=== PATIENT | female | born 1960 | race Caucasian/White ===

== ENCOUNTER 2020-09-26 18:51 | Inpatient (IN) | payer MEDICAID, SELFPAY ==
[~2020-09-26] VITALS: Ht 165.1 cm; Wt 112.0 kg
[2020-09-26] MEDS ORDERED: LORAZEPAM 2MG/ML CPJ IM ONE (19:15)
[2020-09-26 20:25] LABS: HEMATOCRIT. 45.7 % (36.0-48.0); HEMOGLOBIN. 15.5 g/dL (12.0-16.0); MEAN CORPUSCULAR HEMOGLOBIN 30.2 pg (28.0-32.0); MEAN CORPUSCULAR VOLUME 89.1 fL (81.0-99.0); MEAN PLATELET VOLUME 9.8 fl (7.4-10.4); PLATELET 172 x1000/uL (130-400); RED BLOOD CELL COUNT 5.12 mill/uL (4.2-5.4); RED CELL DISTRIBUTION WIDTH 14.1 % (11.6-14.6)
[2020-09-26 20:33] LABS: CHLORIDE 103 mEq/L (98-107)
[2020-09-26 20:57] LABS: PLATELET ESTIMATE NORMAL
[2020-09-26] MEDS ORDERED: DEXAMETHASONE 4MG/ML 1ML VIAL IV ONE (23:00)
[2020-09-26] MEDS ORDERED: CEFTRIAXONE 1 G PREMIX 50 ML IV ONE (23:00)
[2020-09-26] MEDS ORDERED: AZITHROMYCIN 500 MG in DEXT 5% WATER 250 ML IV SCH (23:00)
[2020-09-27 00:20] LABS: CLARITY URINE CLOUDY (CLEAR); COLOR URINE YELLOW (YELLOW); KETONES URINE TRACE (NEGATIVE); LEUKOCYTE ESTERASE URINE NEGATIVE (NEGATIVE); NITRITE URINE NEGATIVE (NEGATIVE); OCCULT BLOOD URINE 2+ (NEGATIVE); PROTEIN URINE 2+ (NEGATIVE); UROBILINOGEN URINE 0.2 E.U./dL (0.2-1.0)
[2020-09-27 00:41] LABS: *AMPHETAMINES SCREEN URINE NEGATIVE (NEGATIVE); *BARBITURATES SCREEN URINE NEGATIVE (NEGATIVE); *BENZODIAZEPINES SCREEN URINE NEGATIVE (NEGATIVE)
[2020-09-27 00:42] LABS: *COCAINE SCREEN URINE NEGATIVE (NEGATIVE); METHADONE URINE SCREEN NEGATIVE (NEGATIVE)
[2020-09-27 00:43] LABS: CANNABINOID URINE SCREEN NEGATIVE (NEGATIVE); OPIATES URINE SCREEN NEGATIVE (NEGATIVE); PHENCYCLIDINE URINE SCREEN NEGATIVE (NEGATIVE)
[2020-09-27 04:56] VITALS: BP 142/84
[2020-09-27 05:01] VITALS: BP 142/84
[2020-09-27] MEDS ORDERED: AMLO10TA80 MT (05:08)
[2020-09-27] MEDS ORDERED: LOSA100T32 MT (05:08)
[2020-09-27] MEDS ORDERED: ALBU6.7H11 INH (05:08)
[2020-09-27] MEDS ORDERED: ATOR-2 MT (05:08)
[2020-09-27] MEDS ORDERED: LORA10TA7 MT (05:08)
[2020-09-27] MEDS ORDERED: ISOS60TA4 MT (05:08)
[2020-09-27] MEDS ORDERED: CLOP75TA4 MT (05:08)
[2020-09-27] MEDS ORDERED: METO25TA6 MT (05:08)
[2020-09-27] MEDS ORDERED: ASPI-1497 MT (05:08)
[2020-09-27] MEDS ORDERED: ALBUTEROL 6.7GM HFA INHALER ORI PRN ×2 (06:30→13:30)
[2020-09-27] MEDS ORDERED: ONDANSETRON HCL 4MG/2ML INJ IV PRN (06:30)
[2020-09-27] MEDS ORDERED: DOCUSATE SODIUM 100MG CAPSULE PO PRN (06:30)
[2020-09-27] MEDS: DEXAMETHASONE 10 MG/ML VIAL IV SCH ×2 (06:54→13:18)
[2020-09-27] MEDS: GUAIFENESIN 200MG/10ML SUGAR FREE UDC PO PRN ×2 (06:54→20:23)
[2020-09-27 08:00] VITALS: BP 141/80
[2020-09-27] MEDS: ENOXAPARIN 30MG/0.3ML SYR SUBCUT SCH ×2 (08:34→20:23)
[2020-09-27] MEDS ORDERED: NA PHOS,M-B/NA PHOS,DI-BA ENEMA 118ML PR PRN (09:00)
[2020-09-27 11:39] VITALS: BP 153/77
[2020-09-27 12:44] LABS: HEMATOCRIT. 45.5 % (36.0-48.0); HEMOGLOBIN. 15.2 g/dL (12.0-16.0); MEAN CORPUSCULAR VOLUME 89.7 fL (81.0-99.0); MEAN PLATELET VOLUME 9.5 fl (7.4-10.4); PLATELET 184 x1000/uL (130-400); RED BLOOD CELL COUNT 5.07 mill/uL (4.2-5.4); RED CELL DISTRIBUTION WIDTH 14.2 % (11.6-14.6)
[2020-09-27 12:46] LABS: CHLORIDE 105 mEq/L (98-107)
[2020-09-27] MEDS ORDERED: MEDICATION NOT ON FORMULARY EA (Atorvastatin Calcium 1 TAB) MT SCH (13:30)
[2020-09-27] MEDS: METOPROLOL TARTRATE 25MG TABLET PO SCH ×2 (14:12→20:24)
[2020-09-27] MEDS: ASPIRIN 81MG EC TABLET PO SCH (14:12)
[2020-09-27] MEDS: CLOPIDOGREL 75MG TABLET PO SCH (14:12)
[2020-09-27] MEDS: LOSARTAN POTASSIUM 100 MG TABLET PO SCH (14:13)
[2020-09-27 14:14] LABS: PLATELET ESTIMATE NORMAL
[2020-09-27 16:00] VITALS: BP 145/96
[2020-09-27] MEDS: ISOSORBIDE MONONITRATE 60MG TABLET SR 24HR PO SCH (16:30)
[2020-09-27] MEDS: LORATADINE 10MG TABLET PO SCH (16:30)
[2020-09-27 20:00] VITALS: BP_SYST 152; BP_SYST 157; BP_DIAS 90; BP_DIAS 91; BP_DIAS 95
[2020-09-27] MEDS: ATORVASTATIN CALCIUM 40MG TABLET PO SCH (20:45)
[2020-09-27] MEDS: ACETAMINOPHEN 325MG TABLET PO PRN (20:48)
[2020-09-27 21:07] LABS: D-DIMER 0.2 mg/L FEU (<0.50); PROTHROMBIN TIME 10.7 sec (9.6-11.0)
[2020-09-27] MEDS: CEFTRIAXONE 1,000 MG in DEXTROSE 5% WATER 50 ML IV SCH (22:29)
[2020-09-27] MEDS: AZITHROMYCIN 500 MG in DEXT 5% WATER 250 ML IV SCH (23:21)
[2020-09-28] VITALS: BP 142/90
[2020-09-28 05:32] VITALS: BP 144/86
[2020-09-28 07:38] LABS: BASOPHILS % 0.2 % (0.0-2.0); EOSINOPHILS % 0.1 % (0.0-5.0); HEMATOCRIT. 49.4 % (36.0-48.0); HEMOGLOBIN. 16.3 g/dL (12.0-16.0); LYMPHOCYTES % 8.6 % (20.0-50.0); MEAN PLATELET VOLUME 9.9 fl (7.4-10.4); MONOCYTES % 4.3 % (2.0-8.0); NEUTROPHILS % 86.8 % (40.0-76.0); PLATELET 181 x1000/uL (130-400); RED BLOOD CELL COUNT 5.43 mill/uL (4.2-5.4); RED CELL DISTRIBUTION WIDTH 14.4 % (11.6-14.6)
[2020-09-28 08:05] LABS: CHLORIDE 105 mEq/L (98-107)
[2020-09-28 08:15] LABS: LDL CHOLESTEROL 84 mg/dL (5-100)
[2020-09-28 08:16] LABS: HDL CHOLESTEROL 48 mg/dL (40-59)
[2020-09-28] MEDS: DEXAMETHASONE 10 MG/ML VIAL IV SCH (09:39)
[2020-09-28] MEDS: LORATADINE 10MG TABLET PO SCH (10:01)
[2020-09-28] MEDS: CLOPIDOGREL 75MG TABLET PO SCH (10:01)
[2020-09-28] MEDS: METOPROLOL TARTRATE 25MG TABLET PO SCH ×2 (10:01→20:55)
[2020-09-28] MEDS: LOSARTAN POTASSIUM 100 MG TABLET PO SCH (10:01)
[2020-09-28] MEDS: ASPIRIN 81MG EC TABLET PO SCH (10:01)
[2020-09-28] MEDS: GUAIFENESIN 200MG/10ML SUGAR FREE UDC PO PRN (10:02)
[2020-09-28] MEDS: ISOSORBIDE MONONITRATE 60MG TABLET SR 24HR PO SCH (10:02)
[2020-09-28] MEDS: ENOXAPARIN 30MG/0.3ML SYR SUBCUT SCH (10:02)
[2020-09-28 12:00] VITALS: BP 127/78
[2020-09-28 16:00] VITALS: BP 129/78
[2020-09-28 20:00] VITALS: BP_SYST 113; BP_SYST 131; BP_DIAS 71; BP_DIAS 89
[2020-09-28] MEDS: FAMOTIDINE 20MG TABLET PO SCH (20:54)
[2020-09-28] MEDS: ATORVASTATIN CALCIUM 40MG TABLET PO SCH (20:54)
[2020-09-28] MEDS ORDERED: SIMETHICONE 80MG TABLET CHEW PO PRN (22:00)
[2020-09-28] MEDS: CEFTRIAXONE 1,000 MG in DEXTROSE 5% WATER 50 ML IV SCH (22:49)
[2020-09-28] MEDS: AZITHROMYCIN 500 MG in DEXT 5% WATER 250 ML IV SCH (23:06)
[2020-09-28] MEDS: GUAIFENESIN-DM 200MG-20MG/10ML UDC PO PRN (23:06)
[2020-09-29] VITALS (8 sets, daily range): BP systolic 124–147; BP diastolic 77–92
[2020-09-29] MEDS: ACETAMINOPHEN 325MG TABLET PO PRN (05:08)
[2020-09-29] MEDS: GUAIFENESIN-DM 200MG-20MG/10ML UDC PO PRN (05:08)
[2020-09-29] MEDS ORDERED: TRYPAN BLUE 0.5 ML DISP.SYRIN IO ONE (09:22)
[2020-09-29] MEDS: ENOXAPARIN 40MG/0.4ML SYR SUBCUT SCH (09:51)
[2020-09-29] MEDS: DEXAMETHASONE 10 MG/ML VIAL IV SCH (09:51)
[2020-09-29] MEDS: METOPROLOL TARTRATE 25MG TABLET PO SCH ×2 (09:52→20:07)
[2020-09-29] MEDS: ASPIRIN 81MG EC TABLET PO SCH (09:52)
[2020-09-29] MEDS: LOSARTAN POTASSIUM 100 MG TABLET PO SCH (09:52)
[2020-09-29] MEDS: LORATADINE 10MG TABLET PO SCH (09:52)
[2020-09-29] MEDS: ISOSORBIDE MONONITRATE 60MG TABLET SR 24HR PO SCH (09:52)
[2020-09-29] MEDS: CLOPIDOGREL 75MG TABLET PO SCH (09:52)
[2020-09-29] MEDS: FAMOTIDINE 20MG TABLET PO SCH (20:06)
[2020-09-29] MEDS: ATORVASTATIN CALCIUM 40MG TABLET PO SCH (20:07)
[2020-09-29] MEDS ORDERED: TRAZODONE HCL 50MG TABLET PO SCH (23:00)
[2020-09-29] MEDS: CEFTRIAXONE 1,000 MG in DEXTROSE 5% WATER 50 ML IV SCH (23:34)
[2020-09-30] VITALS (7 sets, daily range): BP systolic 134–168; BP diastolic 88–106
[2020-09-30] MEDS: AZITHROMYCIN 500 MG in DEXT 5% WATER 250 ML IV SCH (00:11)
[2020-09-30] MEDS: METOPROLOL TARTRATE 25MG TABLET PO SCH ×2 (08:19→21:50)
[2020-09-30] MEDS: LOSARTAN POTASSIUM 100 MG TABLET PO SCH (08:21)
[2020-09-30] MEDS: ISOSORBIDE MONONITRATE 60MG TABLET SR 24HR PO SCH (08:21)
[2020-09-30] MEDS: LORATADINE 10MG TABLET PO SCH (08:21)
[2020-09-30] MEDS: ASPIRIN 81MG EC TABLET PO SCH (08:21)
[2020-09-30] MEDS: DEXAMETHASONE 10 MG/ML VIAL IV SCH (08:21)
[2020-09-30] MEDS: ENOXAPARIN 40MG/0.4ML SYR SUBCUT SCH (08:21)
[2020-09-30] MEDS: CLOPIDOGREL 75MG TABLET PO SCH (08:21)
[2020-09-30] MEDS: CLONIDINE 0.1MG TABLET PO PRN (17:50)
[2020-09-30] MEDS: GUAIFENESIN-DM 200MG-20MG/10ML UDC PO PRN (17:50)
[2020-09-30] MEDS: FAMOTIDINE 20MG TABLET PO SCH (22:02)
[2020-09-30] MEDS: ATORVASTATIN CALCIUM 40MG TABLET PO SCH (22:02)
[2020-10-01 00:16] VITALS: BP 171/98
[2020-10-01] MEDS: CEFTRIAXONE 1,000 MG in DEXTROSE 5% WATER 50 ML IV SCH ×2 (00:30→22:30)
[2020-10-01] MEDS: AZITHROMYCIN 500 MG in DEXT 5% WATER 250 ML IV SCH (01:11)
[2020-10-01] MEDS: CLONIDINE 0.1MG TABLET PO PRN (01:30)
[2020-10-01] MEDS: DIPHENHYDRAMINE 50MG/ML VIAL IV PRN (01:30)
[2020-10-01] MEDS: GUAIFENESIN-DM 200MG-20MG/10ML UDC PO PRN ×2 (02:24→10:27)
[2020-10-01 08:00] VITALS: BP 158/89
[2020-10-01] MEDS: METOPROLOL TARTRATE 25MG TABLET PO SCH ×3 (09:00→20:31)
[2020-10-01] MEDS: ASPIRIN 81MG EC TABLET PO SCH (09:31)
[2020-10-01] MEDS: ISOSORBIDE MONONITRATE 60MG TABLET SR 24HR PO SCH (09:44)
[2020-10-01] MEDS: DEXAMETHASONE 10 MG/ML VIAL IV SCH (09:44)
[2020-10-01] MEDS: LORATADINE 10MG TABLET PO SCH (09:45)
[2020-10-01] MEDS: CLOPIDOGREL 75MG TABLET PO SCH (09:45)
[2020-10-01] MEDS: LOSARTAN POTASSIUM 100 MG TABLET PO SCH (09:46)
[2020-10-01] MEDS: ACETAMINOPHEN 325MG TABLET PO PRN ×2 (10:27→18:25)
[2020-10-01] MEDS: ENOXAPARIN 40MG/0.4ML SYR SUBCUT SCH (10:27)
[2020-10-01 12:00] VITALS: BP 147/81
[2020-10-01 15:36] VITALS: BP 139/81
[2020-10-01 20:00] VITALS: BP 143/81
[2020-10-01] MEDS: ATORVASTATIN CALCIUM 40MG TABLET PO SCH (20:31)
[2020-10-01] MEDS: FAMOTIDINE 20MG TABLET PO SCH (20:31)
[2020-10-02] VITALS: BP 151/88
[2020-10-02] MEDS: ACETAMINOPHEN 325MG TABLET PO PRN (02:09)
[2020-10-02 04:00] VITALS: BP 154/75
[2020-10-02 08:00] VITALS: BP 167/95
[2020-10-02] MEDS: ENOXAPARIN 40MG/0.4ML SYR SUBCUT SCH (08:35)
[2020-10-02] MEDS: GUAIFENESIN-DM 200MG-20MG/10ML UDC PO PRN (08:35)
[2020-10-02] MEDS: METOPROLOL TARTRATE 25MG TABLET PO SCH ×2 (08:36→21:00)
[2020-10-02] MEDS: CLOPIDOGREL 75MG TABLET PO SCH (08:36)
[2020-10-02] MEDS: LOSARTAN POTASSIUM 100 MG TABLET PO SCH (08:36)
[2020-10-02] MEDS: ISOSORBIDE MONONITRATE 60MG TABLET SR 24HR PO SCH (08:36)
[2020-10-02] MEDS: ASPIRIN 81MG EC TABLET PO SCH (08:37)
[2020-10-02] MEDS: LORATADINE 10MG TABLET PO SCH (08:37)
[2020-10-02] MEDS: DEXAMETHASONE 10 MG/ML VIAL IV SCH (08:37)
[2020-10-02] MEDS: DIPHENHYDRAMINE 50MG/ML VIAL IV PRN ×2 (08:37→23:09)
[2020-10-02 12:00] VITALS: BP 135/76
[2020-10-02 16:00] VITALS: BP 163/83
[2020-10-02] MEDS: CLONIDINE 0.1MG TABLET PO PRN (16:36)
[2020-10-02 20:00] VITALS: BP 141/83
[2020-10-02] MEDS: FAMOTIDINE 20MG TABLET PO SCH (20:59)
[2020-10-02] MEDS: ATORVASTATIN CALCIUM 40MG TABLET PO SCH (20:59)
[2020-10-02] MEDS: CEFTRIAXONE 1,000 MG in DEXTROSE 5% WATER 50 ML IV SCH (22:38)
[2020-10-03] VITALS (18 sets, daily range): BP systolic 133–167; BP diastolic 78–102
[2020-10-03] MEDS: ACETAMINOPHEN 325MG TABLET PO PRN (04:12)
[2020-10-03] MEDS: GUAIFENESIN-DM 200MG-20MG/10ML UDC PO PRN (08:22)
[2020-10-03] MEDS: DEXAMETHASONE 10 MG/ML VIAL IV SCH (08:23)
[2020-10-03] MEDS: DIPHENHYDRAMINE 50MG/ML VIAL IV PRN (08:23)
[2020-10-03] MEDS: ASPIRIN 81MG EC TABLET PO SCH (08:23)
[2020-10-03] MEDS: LOSARTAN POTASSIUM 100 MG TABLET PO SCH (08:24)
[2020-10-03] MEDS: ENOXAPARIN 40MG/0.4ML SYR SUBCUT SCH (08:24)
[2020-10-03] MEDS: METOPROLOL TARTRATE 25MG TABLET PO SCH (08:24)
[2020-10-03] MEDS: ISOSORBIDE MONONITRATE 60MG TABLET SR 24HR PO SCH (08:24)
[2020-10-03] MEDS: LORATADINE 10MG TABLET PO SCH (08:24)
[2020-10-03] MEDS: CLOPIDOGREL 75MG TABLET PO SCH (08:24)
[2020-10-03] MEDS ORDERED: LORAZEPAM 2MG/ML CPJ IV PRN (11:45)
[2020-10-03] MEDS: CLONIDINE 0.1MG TABLET PO PRN (11:49)
[2020-10-03 11:58] LABS: BG BASE EXCESS -0.2 mmol/L (-2.0-2.0); BG CARBOXYHEMOGLOBIN 0.8 % (0.5-1.5); BG DEOXYHEMOGLOBIN 12.8 % (0.0-5.0); BG METHEMOGLOBIN 0.1 % (0.0-1.5); BG OXYGEN SATURATION 87.1 % (92.0-98.5); BG OXYHEMOGLOBIN 86.3 % (94.0-97.0); BG PCO2 33.8 mmHg (35.0-45.0); BG PH 7.451 (7.350-7.450); BG PO2 49.4 mmHg (75.0-100.0); BG SAMPLE SITE RIGHT RADIAL; BG TOTAL HEMOGLOBIN 15.3 g/dL (12.0-18.0); BG VENT MODE MASK - NRB
[2020-10-03] MEDS ORDERED: FUROSEMIDE 40MG/4ML VIAL IVP NR (12:00)
[2020-10-03 17:27] LABS: HEMATOCRIT 45.9 % (36.0-48.0); HEMOGLOBIN 15.6 g/dL (12.0-16.0); MEAN CORPUSCULAR HEMOGLOBIN 29.8 pg (28.0-32.0); MEAN CORPUSCULAR VOLUME 87.7 fL (81.0-99.0); PLATELET 301 x1000/uL (130-400); RED BLOOD CELL COUNT 5.23 mill/uL (4.2-5.4); RED CELL DISTRIBUTION WIDTH 13.6 % (11.6-14.6)
[2020-10-03 17:41] LABS: CHLORIDE 105 mEq/L (98-107)
[2020-10-03 17:47] LABS: D-DIMER 0.37 mg/L FEU (<0.50); INR 1.1; PARTIAL THROMBOPLASTIN TIME 24.6 sec (23.4-31.0); PROTHROMBIN TIME 11.1 sec (9.6-11.0)
[2020-10-03] MEDS ORDERED: TRAZODONE HCL 50MG TABLET PO PRN (21:00)
[2020-10-03] MEDS ORDERED: TRAZODONE HCL 50MG TABLET PO SCH (21:00)
[2020-10-03] MEDS: FAMOTIDINE 20MG TABLET PO SCH (21:16)
[2020-10-03] MEDS: ATORVASTATIN CALCIUM 40MG TABLET PO SCH (21:16)
[2020-10-03] MEDS: ENOXAPARIN 100MG/ML SYR SUBCUT SCH (21:17)
[2020-10-03] MEDS: HYDRALAZINE 20MG/ML VIAL IV PRN (22:02)
[2020-10-04] VITALS (83 sets, daily range): BP systolic 104–190; BP diastolic 55–104
[2020-10-04] MEDS: HYDRALAZINE 20MG/ML VIAL IV PRN ×2 (05:04→20:43)
[2020-10-04 05:51] LABS: CHLORIDE 107 mEq/L (98-107)
[2020-10-04 06:05] LABS: HEMATOCRIT. 47.8 % (36.0-48.0); HEMOGLOBIN. 15.9 g/dL (12.0-16.0); MEAN CORPUSCULAR HEMOGLOBIN 29.5 pg (28.0-32.0); MEAN CORPUSCULAR VOLUME 88.7 fL (81.0-99.0); MEAN PLATELET VOLUME 9.8 fl (7.4-10.4); PLATELET 316 x1000/uL (130-400); RED BLOOD CELL COUNT 5.39 mill/uL (4.2-5.4); RED CELL DISTRIBUTION WIDTH 13.9 % (11.6-14.6)
[2020-10-04] MEDS: ASPIRIN 81MG EC TABLET PO SCH (09:20)
[2020-10-04] MEDS: LOSARTAN POTASSIUM 100 MG TABLET PO SCH (09:21)
[2020-10-04] MEDS: LORATADINE 10MG TABLET PO SCH (09:21)
[2020-10-04] MEDS: ISOSORBIDE MONONITRATE 60MG TABLET SR 24HR PO SCH (09:21)
[2020-10-04] MEDS: CLOPIDOGREL 75MG TABLET PO SCH (09:21)
[2020-10-04] MEDS: ENOXAPARIN 100MG/ML SYR SUBCUT SCH ×2 (09:22→20:43)
[2020-10-04] MEDS: DEXAMETHASONE 10 MG/ML VIAL IV SCH (09:25)
[2020-10-04] MEDS: DEXT 5%/0.9% NACL 1,000 ML IV SCH ×2 (09:27→23:10)
[2020-10-04 09:59] LABS: BG BASE EXCESS 1.9 mmol/L (-2.0-2.0); BG CARBOXYHEMOGLOBIN 0.5 % (0.5-1.5); BG DEOXYHEMOGLOBIN 1.4 % (0.0-5.0); BG FRACTION INSPIRED OXYGEN 100; BG HCO3 ACT 25.9 mmol/L (22.0-26.0); BG METHEMOGLOBIN 0.3 % (0.0-1.5); BG OXYGEN SATURATION 98.6 % (92.0-98.5); BG OXYHEMOGLOBIN 97.8 % (94.0-97.0); BG PCO2 38.9 mmHg (35.0-45.0); BG PH 7.442 (7.350-7.450); BG PO2 136.6 mmHg (75.0-100.0); BG SAMPLE SITE LEFT RADIAL; BG TOTAL HEMOGLOBIN 16.7 g/dL (12.0-18.0); BG TOTAL RESPIRATORY RATE 25 b/min
[2020-10-04 10:56] LABS: BG VENT MODE MASK-BIPAP
[2020-10-04 11:40] LABS: PLATELET ESTIMATE NORMAL
[2020-10-04] MEDS: ATORVASTATIN CALCIUM 40MG TABLET PO SCH (20:39)
[2020-10-04] MEDS: FAMOTIDINE 20MG TABLET PO SCH (20:40)
[2020-10-04] MEDS ORDERED: TRAZODONE HCL 50MG TABLET PO PRN (21:00)
[2020-10-05] VITALS (48 sets, daily range): BP systolic 121–179; BP diastolic 66–94
[2020-10-05 05:46] LABS: HEMATOCRIT. 46.2 % (36.0-48.0); HEMOGLOBIN. 15.4 g/dL (12.0-16.0); MEAN CORPUSCULAR HEMOGLOBIN 29.7 pg (28.0-32.0); MEAN CORPUSCULAR VOLUME 89.3 fL (81.0-99.0); MEAN PLATELET VOLUME 9.4 fl (7.4-10.4); PLATELET 304 x1000/uL (130-400); RED BLOOD CELL COUNT 5.17 mill/uL (4.2-5.4); RED CELL DISTRIBUTION WIDTH 14.1 % (11.6-14.6)
[2020-10-05 06:02] LABS: CHLORIDE 112 mEq/L (98-107)
[2020-10-05] MEDS: HYDRALAZINE 20MG/ML VIAL IV PRN (09:05)
[2020-10-05] MEDS: LOSARTAN POTASSIUM 100 MG TABLET PO SCH (09:06)
[2020-10-05] MEDS: CLOPIDOGREL 75MG TABLET PO SCH (09:06)
[2020-10-05] MEDS: ASPIRIN 81MG EC TABLET PO SCH (09:06)
[2020-10-05] MEDS: DEXAMETHASONE 10 MG/ML VIAL IV SCH (09:06)
[2020-10-05] MEDS: ISOSORBIDE MONONITRATE 60MG TABLET SR 24HR PO SCH (09:06)
[2020-10-05] MEDS: LORATADINE 10MG TABLET PO SCH (09:06)
[2020-10-05] MEDS: ENOXAPARIN 100MG/ML SYR SUBCUT SCH ×2 (09:07→22:29)
[2020-10-05 09:48] LABS: BG BASE EXCESS 0.6 mmol/L (-2.0-2.0); BG CARBOXYHEMOGLOBIN 0.7 % (0.5-1.5); BG DEOXYHEMOGLOBIN 4.2 % (0.0-5.0); BG FRACTION INSPIRED OXYGEN 100; BG HCO3 ACT 25.1 mmol/L (22.0-26.0); BG METHEMOGLOBIN 0.2 % (0.0-1.5); BG OXYGEN SATURATION 95.8 % (92.0-98.5); BG OXYHEMOGLOBIN 94.9 % (94.0-97.0); BG PH 7.416 (7.350-7.450); BG PO2 87.7 mmHg (75.0-100.0); BG SAMPLE SITE RIGHT RADIAL; BG TOTAL HEMOGLOBIN 16.8 g/dL (12.0-18.0); BG VENT MODE MASK - BIPAP
[2020-10-05 10:25] LABS: PLATELET ESTIMATE NORMAL
[2020-10-05] MEDS: ALBUTEROL 6.7GM HFA INHALER ORI SCH ×2 (14:31→20:05)
[2020-10-05] MEDS: DEXT 5%/0.9% NACL 1,000 ML IV SCH (17:56)
[2020-10-05] MEDS: ATORVASTATIN CALCIUM 40MG TABLET PO SCH (21:00)
[2020-10-05] MEDS: FAMOTIDINE 20MG TABLET PO SCH (21:00)
[2020-10-06] VITALS (78 sets, daily range): BP systolic 82–152; BP diastolic 39–86
[2020-10-06] MEDS: PROPOFOL 10MG/ML 100ML 100 ML IV PRN ×6 (01:15→18:14)
[2020-10-06 03:03] LABS: BG BASE EXCESS -5.2 mmol/L (-2.0-2.0); BG CARBOXYHEMOGLOBIN 0.7 % (0.5-1.5); BG DEOXYHEMOGLOBIN 2.1 % (0.0-5.0); BG FRACTION INSPIRED OXYGEN 100; BG HCO3 ACT 20.8 mmol/L (22.0-26.0); BG METHEMOGLOBIN 0.6 % (0.0-1.5); BG OXYGEN SATURATION 97.9 % (92.0-98.5); BG OXYHEMOGLOBIN 96.6 % (94.0-97.0); BG PCO2 42.4 mmHg (35.0-45.0); BG PH 7.309 (7.350-7.450); BG PO2 128.1 mmHg (75.0-100.0); BG SAMPLE SITE RIGHT BRACHIAL; BG TOTAL HEMOGLOBIN 14.3 g/dL (12.0-18.0); BG VENT MODE VENT - AC
[2020-10-06] MEDS: FENTANYL CITRATE/PF 2,500 MCG in SODIUM CHLORIDE 0.9% 200 ML IV PRN (04:00)
[2020-10-06 07:12] LABS: BG BASE EXCESS -0.1 mmol/L (-2.0-2.0); BG CARBOXYHEMOGLOBIN 0.7 % (0.5-1.5); BG DEOXYHEMOGLOBIN 2.8 % (0.0-5.0); BG FRACTION INSPIRED OXYGEN 100; BG HCO3 ACT 25.7 mmol/L (22.0-26.0); BG METHEMOGLOBIN 0.1 % (0.0-1.5); BG OXYGEN SATURATION 97.2 % (92.0-98.5); BG OXYHEMOGLOBIN 96.4 % (94.0-97.0); BG PCO2 46.3 mmHg (35.0-45.0); BG PH 7.362 (7.350-7.450); BG PO2 96.5 mmHg (75.0-100.0); BG SAMPLE SITE RIGHT BRACHIAL; BG TOTAL HEMOGLOBIN 13.4 g/dL (12.0-18.0); BG VENT MODE VENT - AC
[2020-10-06] MEDS: LOSARTAN POTASSIUM 100 MG TABLET PO SCH (09:00)
[2020-10-06] MEDS: ISOSORBIDE MONONITRATE 60MG TABLET SR 24HR PO SCH (09:00)
[2020-10-06] MEDS: DEXAMETHASONE 10 MG/ML VIAL IV SCH (09:15)
[2020-10-06] MEDS: ENOXAPARIN 100MG/ML SYR SUBCUT SCH ×2 (09:17→22:29)
[2020-10-06] MEDS: DEXT 5%/0.9% NACL 1,000 ML IV SCH (09:18)
[2020-10-06] MEDS: CLOPIDOGREL 75MG TABLET PO SCH (09:46)
[2020-10-06] MEDS: LORATADINE 10MG TABLET PO SCH (09:46)
[2020-10-06] MEDS: ASPIRIN 81MG EC TABLET PO SCH (09:47)
[2020-10-06] MEDS ORDERED: PROPOFOL 10MG/ML 100ML 100 ML IV PRN (12:00)
[2020-10-06] MEDS ORDERED: LIDOCAINE HCL/EPINEPHRINE 1%-EPI 1:100,000 20 ML VIAL ONE (12:36)
[2020-10-06] MEDS ORDERED: SODIUM BICARBONATE 4% (2.4MEQ) 5ML VIAL IV ONE (12:37)
[2020-10-06] MEDS ORDERED: LIDOCAINE HCL/PF 1% 10 MG/ML 5ML VIAL ONE (12:38)
[2020-10-06] MEDS ORDERED: LIDOCAINE HCL 1% 20ML VIAL (Pyxis) INJ ONE (12:38)
[2020-10-06] MEDS: PHENYLEPHRINE 100 MG in DEXT 5% WATER 240 ML IV PRN (18:11)
[2020-10-06] MEDS ORDERED: ATROPINE SULFATE 1MG/10ML SYR IV NR (18:30)
[2020-10-06] MEDS: ALBUTEROL 6.7GM HFA INHALER ORI SCH (20:19)
[2020-10-06 20:31] LABS: HEMATOCRIT. 40.7 % (36.0-48.0); HEMOGLOBIN. 13.2 g/dL (12.0-16.0); MEAN CORPUSCULAR HEMOGLOBIN 29.5 pg (28.0-32.0); MEAN CORPUSCULAR VOLUME 90.8 fL (81.0-99.0); MEAN PLATELET VOLUME 9.6 fl (7.4-10.4); PLATELET 279 x1000/uL (130-400); RED BLOOD CELL COUNT 4.48 mill/uL (4.2-5.4); RED CELL DISTRIBUTION WIDTH 14.2 % (11.6-14.6)
[2020-10-06 20:45] LABS: PHOSPHORUS 4.7 mg/dL (2.5-4.9)
[2020-10-06] MEDS: FAMOTIDINE 20MG TABLET PO SCH (21:12)
[2020-10-06] MEDS: ATORVASTATIN CALCIUM 40MG TABLET PO SCH (21:12)
[2020-10-06 21:29] LABS: PLATELET ESTIMATE NORMAL
[2020-10-06] MEDS ORDERED: DOPAMINE 800MG PREMIX (DOUBLE) 250 ML IV PRN (22:15)
[2020-10-07] VITALS (46 sets, daily range): BP systolic 90–139; BP diastolic 54–75
[2020-10-07] MEDS: ALBUTEROL 6.7GM HFA INHALER ORI SCH ×4 (00:07→21:09)
[2020-10-07] MEDS: MIDAZOLAM HCL 100 MG in DEXT 5% WATER 80 ML IV PRN ×2 (00:24→13:55)
[2020-10-07] MEDS: FENTANYL CITRATE/PF 2,500 MCG in SODIUM CHLORIDE 0.9% 200 ML IV PRN ×2 (01:49→23:07)
[2020-10-07] MEDS: ACETAMINOPHEN 650MG/20.3ML UDC PO PRN (01:52)
[2020-10-07 08:47] LABS: BG BASE EXCESS -4.8 mmol/L (-2.0-2.0); BG DEOXYHEMOGLOBIN 3.3 % (0.0-5.0); BG FRACTION INSPIRED OXYGEN 90; BG METHEMOGLOBIN 0.9 % (0.0-1.5); BG OXYGEN SATURATION 96.7 % (92.0-98.5); BG OXYHEMOGLOBIN 95.8 % (94.0-97.0); BG PCO2 41.3 mmHg (35.0-45.0); BG PH 7.324 (7.350-7.450); BG SAMPLE SITE LEFT RADIAL; BG TOTAL HEMOGLOBIN 13.8 g/dL (12.0-18.0); BG TOTAL RESPIRATORY RATE 24 b/min; BG VENT MODE VENT - AC
[2020-10-07] MEDS: LOSARTAN POTASSIUM 100 MG TABLET PO SCH ×2 (09:00→10:16)
[2020-10-07] MEDS: LORATADINE 10MG TABLET PO SCH (10:16)
[2020-10-07] MEDS: DEXAMETHASONE 10 MG/ML VIAL IV SCH (10:17)
[2020-10-07] MEDS: CLOPIDOGREL 75MG TABLET PO SCH (10:17)
[2020-10-07] MEDS: ENOXAPARIN 100MG/ML SYR SUBCUT SCH ×2 (10:21→22:14)
[2020-10-07] MEDS: ISOSORBIDE MONONITRATE 20MG TABLET NG SCH ×2 (10:45→16:00)
[2020-10-07] MEDS: ASPIRIN 81MG TABLET NG SCH (11:21)
[2020-10-07] MEDS: DEXT 5%/0.9% NACL 1,000 ML IV SCH ×2 (13:58→18:27)
[2020-10-07 18:32] LABS: CREATINE KINASE MB FRACTION 6.2 ng/mL (0.5-3.6)
[2020-10-07 20:51] LABS: T4 FREE 0.89 ng/dL (0.76-1.46)
[2020-10-07] MEDS: ATORVASTATIN CALCIUM 40MG TABLET PO SCH (22:14)
[2020-10-07] MEDS: FAMOTIDINE 20MG TABLET PO SCH (22:14)
[2020-10-07] MEDS: CEFEPIME 1,000 MG in DEXTROSE 5% WATER 50 ML IV SCH (22:29)
[2020-10-07 23:54] LABS: CREATINE KINASE MB FRACTION 8.7 ng/mL (0.5-3.6)
[2020-10-08] VITALS (67 sets, daily range): BP systolic 99–157; BP diastolic 44–81
[2020-10-08] MEDS: ALBUTEROL 6.7GM HFA INHALER ORI SCH ×3 (02:09→14:07)
[2020-10-08 06:24] LABS: CREATINE KINASE MB FRACTION 11.7 ng/mL (0.5-3.6)
[2020-10-08] MEDS: LOSARTAN POTASSIUM 100 MG TABLET PO SCH ×2 (09:00→09:11)
[2020-10-08] MEDS: ISOSORBIDE MONONITRATE 20MG TABLET NG SCH ×2 (09:00→17:35)
[2020-10-08] MEDS: DEXAMETHASONE 10 MG/ML VIAL IV SCH (09:11)
[2020-10-08] MEDS: LORATADINE 10MG TABLET PO SCH (09:11)
[2020-10-08] MEDS: ASPIRIN 81MG TABLET NG SCH (09:11)
[2020-10-08] MEDS: CLOPIDOGREL 75MG TABLET PO SCH (09:12)
[2020-10-08] MEDS: ENOXAPARIN 100MG/ML SYR SUBCUT SCH ×2 (09:14→20:26)
[2020-10-08] MEDS: CEFEPIME 1,000 MG in DEXTROSE 5% WATER 50 ML IV SCH (09:38)
[2020-10-08 09:40] LABS: BG BASE EXCESS -3.8 mmol/L (-2.0-2.0); BG CARBOXYHEMOGLOBIN 0.5 % (0.5-1.5); BG DEOXYHEMOGLOBIN 2.8 % (0.0-5.0); BG FRACTION INSPIRED OXYGEN 100; BG HCO3 ACT 22.4 mmol/L (22.0-26.0); BG METHEMOGLOBIN 0.3 % (0.0-1.5); BG OXYGEN SATURATION 97.2 % (92.0-98.5); BG OXYHEMOGLOBIN 96.4 % (94.0-97.0); BG PH 7.315 (7.350-7.450); BG PO2 95.4 mmHg (75.0-100.0); BG SAMPLE SITE LEFT RADIAL; BG TOTAL HEMOGLOBIN 13.2 g/dL (12.0-18.0); BG TOTAL RESPIRATORY RATE 29 b/min; BG VENT MODE VENT - AC
[2020-10-08] MEDS: MIDAZOLAM HCL 100 MG in DEXT 5% WATER 80 ML IV PRN ×2 (09:44→20:32)
[2020-10-08] MEDS: DEXT 5%/0.9% NACL 1,000 ML IV SCH (12:41)
[2020-10-08] MEDS: FENTANYL CITRATE/PF 2,500 MCG in SODIUM CHLORIDE 0.9% 200 ML IV PRN ×2 (13:57→22:33)
[2020-10-08] MEDS: FAMOTIDINE 20MG TABLET PO SCH (20:26)
[2020-10-08] MEDS: ATORVASTATIN CALCIUM 40MG TABLET PO SCH (20:26)
[2020-10-08] MEDS ORDERED: IPRATROPIUM/ALBUTEROL 0.5-3(2.5)MG/3ML NEB HHN PRN (20:30)
[2020-10-09] VITALS (107 sets, daily range): BP systolic 83–142; BP diastolic 42–95
[2020-10-09] MEDS: IPRATROPIUM/ALBUTEROL 0.5-3(2.5)MG/3ML NEB HHN SCH ×6 (01:10→21:04)
[2020-10-09] MEDS: DEXT 5%/0.9% NACL 1,000 ML IV SCH (01:38)
[2020-10-09] MEDS: MIDAZOLAM HCL 100 MG in DEXT 5% WATER 80 ML IV PRN ×3 (04:27→23:09)
[2020-10-09] MEDS ORDERED: AMIODARONE HCL 150 MG in DEXT 5% WATER 100 ML IV SCH (05:00)
[2020-10-09] MEDS ORDERED: AMIODARONE HCL 900 MG in DEXT 5% WATER 482 ML IV PRN (05:00)
[2020-10-09 05:17] LABS: HEMATOCRIT. 36.4 % (36.0-48.0); HEMOGLOBIN. 11.7 g/dL (12.0-16.0); MEAN CORPUSCULAR HEMOGLOBIN 29.8 pg (28.0-32.0); MEAN CORPUSCULAR VOLUME 92.7 fL (81.0-99.0); MEAN PLATELET VOLUME 10.3 fl (7.4-10.4); PLATELET 185 x1000/uL (130-400); RED BLOOD CELL COUNT 3.92 mill/uL (4.2-5.4); RED CELL DISTRIBUTION WIDTH 14.7 % (11.6-14.6)
[2020-10-09 05:39] LABS: CHLORIDE 125 mEq/L (98-107)
[2020-10-09 05:43] LABS: PHOSPHORUS 2.8 mg/dL (2.5-4.9)
[2020-10-09] MEDS ORDERED: PROPOFOL 10MG/ML 100ML 100 ML IV PRN (06:30)
[2020-10-09] MEDS ORDERED: DIGOXIN 500MCG/2ML AMP IV NR (07:15)
[2020-10-09] MEDS ORDERED: DIGOXIN 500MCG/2ML AMP ONE (07:15)
[2020-10-09] MEDS: FENTANYL CITRATE/PF 2,500 MCG in SODIUM CHLORIDE 0.9% 200 ML IV PRN ×3 (07:17→23:08)
[2020-10-09] MEDS ORDERED: AMIODARONE HCL 150 MG in DEXT 5% WATER 100 ML IV NR (07:30)
[2020-10-09 07:54] LABS: PLATELET ESTIMATE NORMAL
[2020-10-09] MEDS: ISOSORBIDE MONONITRATE 20MG TABLET NG SCH ×2 (09:00→16:32)
[2020-10-09] MEDS: ENOXAPARIN 100MG/ML SYR SUBCUT SCH ×2 (09:00→21:00)
[2020-10-09] MEDS: LOSARTAN POTASSIUM 100 MG TABLET PO SCH (09:00)
[2020-10-09] MEDS: CLOPIDOGREL 75MG TABLET PO SCH (09:00)
[2020-10-09] MEDS: DEXAMETHASONE 10 MG/ML VIAL IV SCH (09:02)
[2020-10-09] MEDS: LORATADINE 10MG TABLET PO SCH (09:02)
[2020-10-09] MEDS: CEFEPIME 1,000 MG in DEXTROSE 5% WATER 50 ML IV SCH (09:04)
[2020-10-09] MEDS: DEXTROSE 5% WATER 1,000 ML IV SCH (09:18)
[2020-10-09 09:33] LABS: BG BASE EXCESS -4.5 mmol/L (-2.0-2.0); BG CARBOXYHEMOGLOBIN 0.4 % (0.5-1.5); BG DEOXYHEMOGLOBIN 2.9 % (0.0-5.0); BG FRACTION INSPIRED OXYGEN 100; BG HCO3 ACT 23.1 mmol/L (22.0-26.0); BG METHEMOGLOBIN 0.3 % (0.0-1.5); BG OXYGEN SATURATION 97.1 % (92.0-98.5); BG OXYHEMOGLOBIN 96.4 % (94.0-97.0); BG PCO2 53.3 mmHg (35.0-45.0); BG PH 7.255 (7.350-7.450); BG PO2 101.3 mmHg (75.0-100.0); BG SAMPLE SITE LEFT RADIAL; BG TOTAL HEMOGLOBIN 12.7 g/dL (12.0-18.0); BG TOTAL RESPIRATORY RATE 33 b/min; BG VENT MODE VENT - AC
[2020-10-09 09:49] LABS: INR 1.2; PROTHROMBIN TIME 12.4 sec (9.6-11.0)
[2020-10-09] MEDS ORDERED: ATROPINE SULFATE 0.1MG/ML 10ML DISP.SYRIN IV NR (10:30)
[2020-10-09] MEDS: ASPIRIN 81MG TABLET NG SCH (15:00)
[2020-10-09] MEDS: ATORVASTATIN CALCIUM 40MG TABLET PO SCH (21:24)
[2020-10-09] MEDS: FAMOTIDINE 20MG TABLET PO SCH (21:24)
[2020-10-10] VITALS (91 sets, daily range): BP systolic 90–171; BP diastolic 46–104
[2020-10-10] MEDS: IPRATROPIUM/ALBUTEROL 0.5-3(2.5)MG/3ML NEB HHN SCH ×6 (00:46→21:17)
[2020-10-10] MEDS: CLOPIDOGREL 75MG TABLET PO SCH (09:00)
[2020-10-10 09:04] LABS: BG BASE EXCESS -2.4 mmol/L (-2.0-2.0); BG CARBOXYHEMOGLOBIN 0.3 % (0.5-1.5); BG DEOXYHEMOGLOBIN 2.5 % (0.0-5.0); BG FRACTION INSPIRED OXYGEN 100; BG HCO3 ACT 24.4 mmol/L (22.0-26.0); BG METHEMOGLOBIN 0.1 % (0.0-1.5); BG OXYGEN SATURATION 97.5 % (92.0-98.5); BG OXYHEMOGLOBIN 97.1 % (94.0-97.0); BG PCO2 50.9 mmHg (35.0-45.0); BG PH 7.299 (7.350-7.450); BG PO2 115.2 mmHg (75.0-100.0); BG SAMPLE SITE LEFT RADIAL; BG TOTAL HEMOGLOBIN 12.1 g/dL (12.0-18.0); BG TOTAL RESPIRATORY RATE 34 b/min; BG VENT MODE VENT - AC
[2020-10-10] MEDS: ASPIRIN 81MG TABLET NG SCH (09:20)
[2020-10-10] MEDS: CEFEPIME 1,000 MG in DEXTROSE 5% WATER 50 ML IV SCH (09:20)
[2020-10-10] MEDS: DEXTROSE 5% WATER 1,000 ML IV SCH (09:21)
[2020-10-10] MEDS: LORATADINE 10MG TABLET PO SCH (09:21)
[2020-10-10] MEDS: LOSARTAN POTASSIUM 100 MG TABLET PO SCH (09:21)
[2020-10-10] MEDS: ISOSORBIDE MONONITRATE 20MG TABLET NG SCH (09:21)
[2020-10-10] MEDS: DEXAMETHASONE 10 MG/ML VIAL IV SCH (09:21)
[2020-10-10] MEDS: FENTANYL CITRATE/PF 2,500 MCG in SODIUM CHLORIDE 0.9% 200 ML IV PRN ×2 (09:33→17:16)
[2020-10-10] MEDS: PROPOFOL 10MG/ML 100ML 100 ML IV PRN ×3 (12:11→23:57)
[2020-10-10] MEDS: MIDAZOLAM HCL 100 MG in DEXT 5% WATER 80 ML IV PRN ×2 (12:16→23:02)
[2020-10-10] MEDS: FAMOTIDINE 20MG TABLET PO SCH (22:03)
[2020-10-11] VITALS (69 sets, daily range): BP systolic 105–224; BP diastolic 57–135
[2020-10-11] MEDS: IPRATROPIUM/ALBUTEROL 0.5-3(2.5)MG/3ML NEB HHN SCH ×6 (00:27→21:27)
[2020-10-11] MEDS: FENTANYL CITRATE/PF 2,500 MCG in SODIUM CHLORIDE 0.9% 200 ML IV PRN ×3 (00:52→21:21)
[2020-10-11 05:15] LABS: HEMATOCRIT. 33.9 % (36.0-48.0); HEMOGLOBIN. 11.1 g/dL (12.0-16.0); MEAN CORPUSCULAR HEMOGLOBIN 29.9 pg (28.0-32.0); MEAN CORPUSCULAR VOLUME 91.1 fL (81.0-99.0); MEAN PLATELET VOLUME 10.4 fl (7.4-10.4); PLATELET 150 x1000/uL (130-400); RED BLOOD CELL COUNT 3.72 mill/uL (4.2-5.4); RED CELL DISTRIBUTION WIDTH 14.1 % (11.6-14.6)
[2020-10-11 05:32] LABS: CHLORIDE 116 mEq/L (98-107)
[2020-10-11 08:26] LABS: BG BASE EXCESS -3.6 mmol/L (-2.0-2.0); BG CARBOXYHEMOGLOBIN 0.3 % (0.5-1.5); BG DEOXYHEMOGLOBIN 1.6 % (0.0-5.0); BG FRACTION INSPIRED OXYGEN 100; BG HCO3 ACT 22.6 mmol/L (22.0-26.0); BG METHEMOGLOBIN 0.1 % (0.0-1.5); BG OXYGEN SATURATION 98.4 % (92.0-98.5); BG PCO2 45.8 mmHg (35.0-45.0); BG PH 7.312 (7.350-7.450); BG PO2 158.1 mmHg (75.0-100.0); BG SAMPLE SITE LEFT RADIAL; BG TOTAL HEMOGLOBIN 12.2 g/dL (12.0-18.0); BG VENT MODE VENT - AC
[2020-10-11] MEDS: CLOPIDOGREL 75MG TABLET PO SCH (09:00)
[2020-10-11] MEDS: DEXAMETHASONE 10 MG/ML VIAL IV SCH (09:17)
[2020-10-11] MEDS: LOSARTAN POTASSIUM 100 MG TABLET PO SCH (09:17)
[2020-10-11] MEDS: LORATADINE 10MG TABLET PO SCH (09:17)
[2020-10-11] MEDS: CEFEPIME 1,000 MG in DEXTROSE 5% WATER 50 ML IV SCH (09:17)
[2020-10-11] MEDS: ASPIRIN 81MG TABLET NG SCH (09:17)
[2020-10-11] MEDS: DEXTROSE 5% WATER 1,000 ML IV SCH (09:18)
[2020-10-11 10:38] LABS: PLATELET ESTIMATE NORMAL
[2020-10-11] MEDS: MIDAZOLAM HCL 100 MG in DEXT 5% WATER 80 ML IV PRN ×2 (10:52→21:21)
[2020-10-11] MEDS: PANTOPRAZOLE SODIUM 40 MG/VIAL IV SCH (17:43)
[2020-10-12] VITALS (87 sets, daily range): BP systolic 112–188; BP diastolic 64–112
[2020-10-12] MEDS: IPRATROPIUM/ALBUTEROL 0.5-3(2.5)MG/3ML NEB HHN SCH ×5 (00:57→17:00)
[2020-10-12 04:25] LABS: HEMATOCRIT. 32.8 % (36.0-48.0); HEMOGLOBIN. 10.8 g/dL (12.0-16.0); MEAN CORPUSCULAR HEMOGLOBIN 29.8 pg (28.0-32.0); MEAN CORPUSCULAR VOLUME 90.9 fL (81.0-99.0); MEAN PLATELET VOLUME 10.6 fl (7.4-10.4); PLATELET 153 x1000/uL (130-400); RED BLOOD CELL COUNT 3.61 mill/uL (4.2-5.4); RED CELL DISTRIBUTION WIDTH 13.6 % (11.6-14.6)
[2020-10-12 04:34] LABS: CHLORIDE 111 mEq/L (98-107)
[2020-10-12 04:41] LABS: PHOSPHORUS 2.5 mg/dL (2.5-4.9)
[2020-10-12] MEDS: FENTANYL CITRATE/PF 2,500 MCG in SODIUM CHLORIDE 0.9% 200 ML IV PRN ×2 (06:37→17:27)
[2020-10-12] MEDS: MIDAZOLAM HCL 100 MG in DEXT 5% WATER 80 ML IV PRN ×2 (06:44→22:41)
[2020-10-12] MEDS: ASPIRIN 81MG TABLET NG SCH (09:00)
[2020-10-12] MEDS: CLOPIDOGREL 75MG TABLET PO SCH (09:00)
[2020-10-12] MEDS: LORATADINE 10MG TABLET PO SCH (09:00)
[2020-10-12] MEDS: DEXAMETHASONE 10 MG/ML VIAL IV SCH (09:39)
[2020-10-12] MEDS: CEFEPIME 1,000 MG in DEXTROSE 5% WATER 50 ML IV SCH ×2 (09:39→20:49)
[2020-10-12] MEDS: PANTOPRAZOLE SODIUM 40 MG/VIAL IV SCH (09:39)
[2020-10-12] MEDS: DEXTROSE 5% WATER 1,000 ML IV SCH (09:40)
[2020-10-12] MEDS: LOSARTAN POTASSIUM 100 MG TABLET PO SCH (09:40)
[2020-10-12 11:09] LABS: BG BASE EXCESS 0.2 mmol/L (-2.0-2.0); BG CARBOXYHEMOGLOBIN 0.2 % (0.5-1.5); BG DEOXYHEMOGLOBIN 4.5 % (0.0-5.0); BG FRACTION INSPIRED OXYGEN 85; BG HCO3 ACT 27.1 mmol/L (22.0-26.0); BG METHEMOGLOBIN 0.1 % (0.0-1.5); BG OXYGEN SATURATION 95.5 % (92.0-98.5); BG OXYHEMOGLOBIN 95.2 % (94.0-97.0); BG PCO2 53.9 mmHg (35.0-45.0); BG PH 7.319 (7.350-7.450); BG SAMPLE SITE LEFT RADIAL; BG TOTAL HEMOGLOBIN 11.9 g/dL (12.0-18.0); BG TOTAL RESPIRATORY RATE 26 b/min; BG VENT MODE VENT - AC
[2020-10-12 12:21] LABS: PLATELET ESTIMATE NORMAL
[2020-10-12] MEDS ORDERED: BISACODYL 10MG SUPP PR ONE (21:30)
[2020-10-12] MEDS: METOCLOPRAMIDE HCL 10MG/2ML VIAL IV SCH (22:02)
[2020-10-13] VITALS (71 sets, daily range): BP systolic 117–219; BP diastolic 62–108
[2020-10-13] MEDS: IPRATROPIUM/ALBUTEROL 0.5-3(2.5)MG/3ML NEB HHN SCH ×6 (00:47→20:59)
[2020-10-13] MEDS: FENTANYL CITRATE/PF 2,500 MCG in SODIUM CHLORIDE 0.9% 200 ML IV PRN ×3 (03:34→21:13)
[2020-10-13] MEDS: DEXTROSE 5% WATER 1,000 ML IV SCH ×2 (06:20→08:10)
[2020-10-13] MEDS: METOCLOPRAMIDE HCL 10MG/2ML VIAL IV SCH ×4 (06:20→23:33)
[2020-10-13] MEDS: MIDAZOLAM HCL 100 MG in DEXT 5% WATER 80 ML IV PRN ×3 (08:07→23:33)
[2020-10-13 08:59] LABS: BG BASE EXCESS 1.9 mmol/L (-2.0-2.0); BG CARBOXYHEMOGLOBIN 0.3 % (0.5-1.5); BG DEOXYHEMOGLOBIN 6.7 % (0.0-5.0); BG FRACTION INSPIRED OXYGEN 80; BG HCO3 ACT 27.9 mmol/L (22.0-26.0); BG METHEMOGLOBIN 0.1 % (0.0-1.5); BG OXYGEN SATURATION 93.3 % (92.0-98.5); BG OXYHEMOGLOBIN 92.9 % (94.0-97.0); BG PH 7.365 (7.350-7.450); BG SAMPLE SITE RIGHT RADIAL; BG TOTAL HEMOGLOBIN 11.5 g/dL (12.0-18.0); BG TOTAL RESPIRATORY RATE 30 b/min; BG VENT MODE VENT - AC
[2020-10-13] MEDS: DEXAMETHASONE 10 MG/ML VIAL IV SCH (09:19)
[2020-10-13] MEDS: PANTOPRAZOLE SODIUM 40 MG/VIAL IV SCH (09:19)
[2020-10-13] MEDS: LOSARTAN POTASSIUM 100 MG TABLET PO SCH (09:19)
[2020-10-13] MEDS: ASPIRIN 81MG TABLET NG SCH (09:19)
[2020-10-13] MEDS: CLOPIDOGREL 75MG TABLET PO SCH (09:19)
[2020-10-13] MEDS: CEFEPIME 1,000 MG in DEXTROSE 5% WATER 50 ML IV SCH ×2 (09:44→21:11)
[2020-10-14] VITALS (83 sets, daily range): BP systolic 89–229; BP diastolic 49–116
[2020-10-14] MEDS: IPRATROPIUM/ALBUTEROL 0.5-3(2.5)MG/3ML NEB HHN SCH ×6 (00:37→21:05)
[2020-10-14 05:55] LABS: CHLORIDE 105 mEq/L (98-107)
[2020-10-14] MEDS: METOCLOPRAMIDE HCL 10MG/2ML VIAL IV SCH ×3 (06:01→17:36)
[2020-10-14 06:03] LABS: HEMATOCRIT. 36.6 % (36.0-48.0); HEMOGLOBIN. 12.1 g/dL (12.0-16.0); MEAN CORPUSCULAR HEMOGLOBIN 29.7 pg (28.0-32.0); MEAN CORPUSCULAR VOLUME 89.7 fL (81.0-99.0); MEAN PLATELET VOLUME 10.7 fl (7.4-10.4); PLATELET 181 x1000/uL (130-400); RED BLOOD CELL COUNT 4.08 mill/uL (4.2-5.4); RED CELL DISTRIBUTION WIDTH 13.7 % (11.6-14.6)
[2020-10-14] MEDS ORDERED: NITROPRUSSIDE 50 MG in DEXT 5% WATER 248 ML IV PRN (06:15)
[2020-10-14] MEDS: FENTANYL CITRATE/PF 2,500 MCG in SODIUM CHLORIDE 0.9% 200 ML IV PRN ×2 (06:32→14:56)
[2020-10-14] MEDS: NITROGLYCERIN 50MG PREMIX 250 ML IV PRN (06:43)
[2020-10-14] MEDS: LOSARTAN POTASSIUM 100 MG TABLET PO SCH (08:58)
[2020-10-14] MEDS: PANTOPRAZOLE SODIUM 40 MG/VIAL IV SCH (08:58)
[2020-10-14] MEDS: DEXTROSE 5% WATER 1,000 ML IV SCH (08:58)
[2020-10-14] MEDS: ASPIRIN 81MG TABLET NG SCH (08:58)
[2020-10-14] MEDS: CLOPIDOGREL 75MG TABLET PO SCH (08:58)
[2020-10-14] MEDS: MIDAZOLAM HCL 100 MG in DEXT 5% WATER 80 ML IV PRN ×2 (09:00→16:08)
[2020-10-14 09:08] LABS: BG BASE EXCESS 6.4 mmol/L (-2.0-2.0); BG CARBOXYHEMOGLOBIN 0.9 % (0.5-1.5); BG DEOXYHEMOGLOBIN 9.8 % (0.0-5.0); BG FRACTION INSPIRED OXYGEN 80; BG HCO3 ACT 32.5 mmol/L (22.0-26.0); BG METHEMOGLOBIN 0.1 % (0.0-1.5); BG OXYGEN SATURATION 90.1 % (92.0-98.5); BG OXYHEMOGLOBIN 89.2 % (94.0-97.0); BG PCO2 53.6 mmHg (35.0-45.0); BG PH 7.401 (7.350-7.450); BG PO2 58.4 mmHg (75.0-100.0); BG SAMPLE SITE LEFT RADIAL; BG TOTAL HEMOGLOBIN 12.2 g/dL (12.0-18.0); BG TOTAL RESPIRATORY RATE 35 b/min; BG VENT MODE VENT - AC
[2020-10-14] MEDS: HYDRALAZINE 20MG/ML VIAL IV PRN (12:18)
[2020-10-14 14:13] LABS: PLATELET ESTIMATE NORMAL
[2020-10-14] MEDS: MORPHINE SULFATE 2 MG/ML CPJ (NOT FOR IM USE) IV PRN ×2 (14:56→18:23)
[2020-10-14] MEDS: HYDRALAZINE HCL 50MG TABLET PO SCH ×2 (15:33→21:44)
[2020-10-14] MEDS ORDERED: HYDRALAZINE HCL 50MG TABLET PO SCH (22:00)
[2020-10-15] VITALS (99 sets, daily range): BP systolic 84–200; BP diastolic 48–128
[2020-10-15] MEDS: METOCLOPRAMIDE HCL 10MG/2ML VIAL IV SCH ×4 (00:09→19:07)
[2020-10-15] MEDS: FENTANYL CITRATE/PF 2,500 MCG in SODIUM CHLORIDE 0.9% 200 ML IV PRN ×3 (00:09→16:38)
[2020-10-15] MEDS: IPRATROPIUM/ALBUTEROL 0.5-3(2.5)MG/3ML NEB HHN SCH ×6 (00:32→20:34)
[2020-10-15] MEDS: MIDAZOLAM HCL 100 MG in DEXT 5% WATER 80 ML IV PRN ×3 (01:22→20:58)
[2020-10-15] MEDS: NITROGLYCERIN 50MG PREMIX 250 ML IV PRN (03:09)
[2020-10-15] MEDS: ACETAMINOPHEN 650MG/20.3ML UDC PO PRN (04:02)
[2020-10-15] MEDS: HYDRALAZINE HCL 50MG TABLET PO SCH ×3 (05:56→21:05)
[2020-10-15 08:06] LABS: BG BASE EXCESS 9.1 mmol/L (-2.0-2.0); BG CARBOXYHEMOGLOBIN 1.2 % (0.5-1.5); BG DEOXYHEMOGLOBIN 4.5 % (0.0-5.0); BG HCO3 ACT 35.8 mmol/L (22.0-26.0); BG METHEMOGLOBIN 0.2 % (0.0-1.5); BG OXYGEN SATURATION 95.4 % (92.0-98.5); BG OXYHEMOGLOBIN 94.1 % (94.0-97.0); BG PCO2 60.4 mmHg (35.0-45.0); BG PH 7.391 (7.350-7.450); BG SAMPLE SITE RIGHT RADIAL; BG TOTAL HEMOGLOBIN 11.5 g/dL (12.0-18.0); BG VENT MODE VENT - AC
[2020-10-15] MEDS: LOSARTAN POTASSIUM 100 MG TABLET PO SCH (09:00)
[2020-10-15] MEDS: CLOPIDOGREL 75MG TABLET PO SCH (09:00)
[2020-10-15] MEDS: PANTOPRAZOLE SODIUM 40 MG/VIAL IV SCH (09:00)
[2020-10-15] MEDS: DEXTROSE 5% WATER 1,000 ML IV SCH (09:01)
[2020-10-15] MEDS ORDERED: BISACODYL 10MG SUPP PR PRN (14:30)
[2020-10-15] MEDS: MORPHINE SULFATE 2 MG/ML CPJ (NOT FOR IM USE) IV PRN (15:17)
[2020-10-15] MEDS ORDERED: PROPOFOL 10MG/ML 100ML 100 ML IV PRN (17:00)
[2020-10-15 21:05] LABS: HEMATOCRIT. 31.1 % (36.0-48.0); HEMOGLOBIN. 10.3 g/dL (12.0-16.0); MEAN CORPUSCULAR HEMOGLOBIN 29.9 pg (28.0-32.0); MEAN CORPUSCULAR VOLUME 90.2 fL (81.0-99.0); MEAN PLATELET VOLUME 9.6 fl (7.4-10.4); PLATELET 128 x1000/uL (130-400); RED BLOOD CELL COUNT 3.45 mill/uL (4.2-5.4); RED CELL DISTRIBUTION WIDTH 13.6 % (11.6-14.6)
[2020-10-15 21:17] LABS: CHLORIDE 101 mEq/L (98-107)
[2020-10-15 21:29] LABS: PLATELET ESTIMATE DECREASED
[2020-10-16] VITALS (103 sets, daily range): BP systolic 68–222; BP diastolic 35–101
[2020-10-16] MEDS: METOCLOPRAMIDE HCL 10MG/2ML VIAL IV SCH ×4 (00:01→18:32)
[2020-10-16] MEDS: IPRATROPIUM/ALBUTEROL 0.5-3(2.5)MG/3ML NEB HHN SCH ×6 (00:46→21:22)
[2020-10-16] MEDS: HYDRALAZINE HCL 50MG TABLET PO SCH ×3 (05:21→22:22)
[2020-10-16] MEDS: DEXTROSE 5% WATER 1,000 ML IV SCH (05:22)
[2020-10-16] MEDS: MIDAZOLAM HCL 100 MG in DEXT 5% WATER 80 ML IV PRN ×2 (05:23→15:19)
[2020-10-16 05:32] LABS: HEMATOCRIT. 30.3 % (36.0-48.0); MEAN CORPUSCULAR VOLUME 90.9 fL (81.0-99.0); MEAN PLATELET VOLUME 10.4 fl (7.4-10.4); PLATELET 119 x1000/uL (130-400); RED BLOOD CELL COUNT 3.33 mill/uL (4.2-5.4); RED CELL DISTRIBUTION WIDTH 13.6 % (11.6-14.6)
[2020-10-16 05:44] LABS: CHLORIDE 102 mEq/L (98-107)
[2020-10-16 08:11] LABS: PLATELET ESTIMATE SLIGHTLY DECREASED
[2020-10-16] MEDS: FENTANYL CITRATE/PF 2,500 MCG in SODIUM CHLORIDE 0.9% 200 ML IV PRN ×4 (08:40→16:57)
[2020-10-16] MEDS: CLOPIDOGREL 75MG TABLET PO SCH (09:54)
[2020-10-16] MEDS: LOSARTAN POTASSIUM 100 MG TABLET PO SCH (09:54)
[2020-10-16] MEDS: PANTOPRAZOLE SODIUM 40 MG/VIAL IV SCH (09:54)
[2020-10-16] MEDS: MORPHINE SULFATE 2 MG/ML CPJ (NOT FOR IM USE) IV PRN (09:55)
[2020-10-16 10:14] LABS: BG BASE EXCESS 6.9 mmol/L (-2.0-2.0); BG CARBOXYHEMOGLOBIN 1.7 % (0.5-1.5); BG FRACTION INSPIRED OXYGEN 100; BG HCO3 ACT 32.6 mmol/L (22.0-26.0); BG METHEMOGLOBIN 0.1 % (0.0-1.5); BG OXYGEN SATURATION 92.9 % (92.0-98.5); BG OXYHEMOGLOBIN 91.2 % (94.0-97.0); BG PCO2 51.9 mmHg (35.0-45.0); BG PH 7.416 (7.350-7.450); BG PO2 63.5 mmHg (75.0-100.0); BG SAMPLE SITE RIGHT RADIAL; BG TOTAL HEMOGLOBIN 10.9 g/dL (12.0-18.0); BG VENT MODE VENT - AC
[2020-10-16] MEDS: ACETAMINOPHEN 650MG/20.3ML UDC PO PRN (16:38)
[2020-10-17] VITALS (94 sets, daily range): BP systolic 82–186; BP diastolic 40–93
[2020-10-17] MEDS: IPRATROPIUM/ALBUTEROL 0.5-3(2.5)MG/3ML NEB HHN SCH ×6 (00:23→20:31)
[2020-10-17] MEDS: METOCLOPRAMIDE HCL 10MG/2ML VIAL IV SCH ×4 (00:33→17:30)
[2020-10-17] MEDS: MORPHINE SULFATE 2 MG/ML CPJ (NOT FOR IM USE) IV PRN (00:35)
[2020-10-17] MEDS: MIDAZOLAM HCL 100 MG in DEXT 5% WATER 80 ML IV PRN ×3 (00:40→18:48)
[2020-10-17] MEDS: FENTANYL CITRATE/PF 2,500 MCG in SODIUM CHLORIDE 0.9% 200 ML IV PRN ×3 (02:54→21:48)
[2020-10-17] MEDS: DEXTROSE 5% WATER 1,000 ML IV SCH (06:48)
[2020-10-17] MEDS: HYDRALAZINE HCL 50MG TABLET PO SCH ×3 (06:48→22:00)
[2020-10-17] MEDS: CLOPIDOGREL 75MG TABLET PO SCH (09:07)
[2020-10-17] MEDS: LOSARTAN POTASSIUM 100 MG TABLET PO SCH (09:07)
[2020-10-17] MEDS: PANTOPRAZOLE SODIUM 40 MG/VIAL IV SCH (09:07)
[2020-10-17] MEDS: PHENYLEPHRINE 100 MG in DEXT 5% WATER 240 ML IV PRN (18:47)
[2020-10-17] MEDS: LACTULOSE 20G/30ML UDC PO PRN (21:48)
[2020-10-18] VITALS (106 sets, daily range): BP systolic 77–173; BP diastolic 49–100
[2020-10-18] MEDS: IPRATROPIUM/ALBUTEROL 0.5-3(2.5)MG/3ML NEB HHN SCH ×6 (00:18→22:46)
[2020-10-18] MEDS: METOCLOPRAMIDE HCL 10MG/2ML VIAL IV SCH ×4 (00:29→17:37)
[2020-10-18] MEDS: MORPHINE SULFATE 2 MG/ML CPJ (NOT FOR IM USE) IV PRN (05:00)
[2020-10-18] MEDS: HYDRALAZINE HCL 50MG TABLET PO SCH ×3 (06:00→22:00)
[2020-10-18] MEDS: MIDAZOLAM HCL 100 MG in DEXT 5% WATER 80 ML IV PRN ×3 (06:03→19:46)
[2020-10-18] MEDS: FENTANYL CITRATE/PF 2,500 MCG in SODIUM CHLORIDE 0.9% 200 ML IV PRN ×3 (06:14→23:07)
[2020-10-18] MEDS: DEXTROSE 5% WATER 1,000 ML IV SCH (06:15)
[2020-10-18] MEDS: PANTOPRAZOLE SODIUM 40 MG/VIAL IV SCH (08:27)
[2020-10-18] MEDS: LOSARTAN POTASSIUM 100 MG TABLET PO SCH (08:27)
[2020-10-18] MEDS: ACETAMINOPHEN 650MG/20.3ML UDC PO PRN (08:33)
[2020-10-18 08:47] LABS: BG CARBOXYHEMOGLOBIN 2.3 % (0.5-1.5); BG DEOXYHEMOGLOBIN 4.2 % (0.0-5.0); BG HCO3 ACT 35.9 mmol/L (22.0-26.0); BG METHEMOGLOBIN 0.2 % (0.0-1.5); BG OXYGEN SATURATION 95.7 % (92.0-98.5); BG OXYHEMOGLOBIN 93.3 % (94.0-97.0); BG PCO2 55.7 mmHg (35.0-45.0); BG PH 7.427 (7.350-7.450); BG PO2 76.1 mmHg (75.0-100.0); BG SAMPLE SITE RIGHT RADIAL; BG TOTAL HEMOGLOBIN 10.5 g/dL (12.0-18.0); BG VENT MODE VENT - AC
[2020-10-18 08:53] LABS: HEMATOCRIT. 30.2 % (36.0-48.0); MEAN CORPUSCULAR HEMOGLOBIN 29.6 pg (28.0-32.0); MEAN CORPUSCULAR VOLUME 89.5 fL (81.0-99.0); PLATELET 142 x1000/uL (130-400); RED BLOOD CELL COUNT 3.38 mill/uL (4.2-5.4); RED CELL DISTRIBUTION WIDTH 14.2 % (11.6-14.6)
[2020-10-18 08:59] LABS: CHLORIDE 99 mEq/L (98-107)
[2020-10-18 12:00] LABS: PLATELET ESTIMATE NORMAL
[2020-10-18] MEDS: PROPOFOL 10MG/ML 100ML 100 ML IV PRN (18:28)
[2020-10-19] VITALS (107 sets, daily range): BP systolic 51–158; BP diastolic 21–86
[2020-10-19] MEDS: IPRATROPIUM/ALBUTEROL 0.5-3(2.5)MG/3ML NEB HHN SCH ×6 (01:26→21:06)
[2020-10-19] MEDS: METOCLOPRAMIDE HCL 10MG/2ML VIAL IV SCH ×4 (01:47→17:27)
[2020-10-19] MEDS: PROPOFOL 10MG/ML 100ML 100 ML IV PRN ×2 (03:46→14:37)
[2020-10-19] MEDS: HYDRALAZINE HCL 50MG TABLET PO SCH ×3 (07:12→20:53)
[2020-10-19] MEDS: DEXTROSE 5% WATER 1,000 ML IV SCH (07:13)
[2020-10-19] MEDS: ACETAMINOPHEN 650MG/20.3ML UDC PO PRN (07:37)
[2020-10-19] MEDS: PANTOPRAZOLE SODIUM 40 MG/VIAL IV SCH (08:10)
[2020-10-19] MEDS: LOSARTAN POTASSIUM 100 MG TABLET PO SCH (08:11)
[2020-10-19 09:59] LABS: BG BASE EXCESS 5.6 mmol/L (-2.0-2.0); BG DEOXYHEMOGLOBIN 14.8 % (0.0-5.0); BG HCO3 ACT 31.7 mmol/L (22.0-26.0); BG METHEMOGLOBIN 0.3 % (0.0-1.5); BG OXYGEN SATURATION 84.9 % (92.0-98.5); BG OXYHEMOGLOBIN 82.9 % (94.0-97.0); BG PH 7.386 (7.350-7.450); BG PO2 50.4 mmHg (75.0-100.0); BG SAMPLE SITE LEFT BRACHIAL; BG TOTAL HEMOGLOBIN 10.5 g/dL (12.0-18.0)
[2020-10-19] MEDS: FENTANYL CITRATE/PF 2,500 MCG in SODIUM CHLORIDE 0.9% 200 ML IV PRN ×2 (10:33→20:51)
[2020-10-19] MEDS: MIDAZOLAM HCL 100 MG in DEXT 5% WATER 80 ML IV PRN ×2 (13:36→20:52)
[2020-10-20] VITALS (108 sets, daily range): BP systolic 72–169; BP diastolic 20–98
[2020-10-20] MEDS: IPRATROPIUM/ALBUTEROL 0.5-3(2.5)MG/3ML NEB HHN SCH ×6 (00:33→21:01)
[2020-10-20] MEDS: METOCLOPRAMIDE HCL 10MG/2ML VIAL IV SCH ×5 (00:34→23:20)
[2020-10-20] MEDS: PROPOFOL 10MG/ML 100ML 100 ML IV PRN ×3 (04:20→21:33)
[2020-10-20] MEDS: LACTULOSE 20G/30ML UDC PO PRN (04:45)
[2020-10-20 05:54] LABS: HEMOGLOBIN. 9.8 g/dL (12.0-16.0); MEAN CORPUSCULAR HEMOGLOBIN 30.2 pg (28.0-32.0); MEAN CORPUSCULAR VOLUME 89.5 fL (81.0-99.0); PLATELET 152 x1000/uL (130-400); RED BLOOD CELL COUNT 3.24 mill/uL (4.2-5.4); RED CELL DISTRIBUTION WIDTH 14.8 % (11.6-14.6)
[2020-10-20 06:04] LABS: CHLORIDE 98 mEq/L (98-107)
[2020-10-20] MEDS: DEXTROSE 5% WATER 1,000 ML IV SCH (06:09)
[2020-10-20] MEDS: HYDRALAZINE HCL 50MG TABLET PO SCH (06:09)
[2020-10-20 06:11] LABS: PHOSPHORUS 2.8 mg/dL (2.5-4.9)
[2020-10-20] MEDS: FENTANYL CITRATE/PF 2,500 MCG in SODIUM CHLORIDE 0.9% 200 ML IV PRN ×2 (06:20→17:04)
[2020-10-20] MEDS: MIDAZOLAM HCL 100 MG in DEXT 5% WATER 80 ML IV PRN ×3 (06:21→20:47)
[2020-10-20] MEDS: ACETAMINOPHEN 650MG/20.3ML UDC PO PRN (07:22)
[2020-10-20 07:48] LABS: BG BASE EXCESS 4.1 mmol/L (-2.0-2.0); BG CARBOXYHEMOGLOBIN 2.2 % (0.5-1.5); BG DEOXYHEMOGLOBIN 28.4 % (0.0-5.0); BG METHEMOGLOBIN 0.3 % (0.0-1.5); BG OXYGEN SATURATION 70.9 % (92.0-98.5); BG OXYHEMOGLOBIN 69.1 % (94.0-97.0); BG PCO2 45.1 mmHg (35.0-45.0); BG PH 7.426 (7.350-7.450); BG PO2 35.3 mmHg (75.0-100.0); BG SAMPLE SITE RIGHT RADIAL; BG TOTAL HEMOGLOBIN 11.2 g/dL (12.0-18.0); BG VENT MODE VENT - SIMV
[2020-10-20] MEDS: PANTOPRAZOLE SODIUM 40 MG/VIAL IV SCH (08:34)
[2020-10-20] MEDS: PHENYLEPHRINE 100 MG in DEXT 5% WATER 240 ML IV PRN (09:41)
[2020-10-20 14:20] LABS: PLATELET ESTIMATE NORMAL
[2020-10-20] MEDS ORDERED: PROPOFOL 10MG/ML 100ML 100 ML IV PRN (18:00)
[2020-10-21] VITALS (93 sets, daily range): BP systolic 105–177; BP diastolic 60–101
[2020-10-21] MEDS: IPRATROPIUM/ALBUTEROL 0.5-3(2.5)MG/3ML NEB HHN SCH ×6 (00:27→21:05)
[2020-10-21] MEDS: MIDAZOLAM HCL 100 MG in DEXT 5% WATER 80 ML IV PRN ×2 (04:20→14:26)
[2020-10-21] MEDS: FENTANYL CITRATE/PF 2,500 MCG in SODIUM CHLORIDE 0.9% 200 ML IV PRN ×2 (04:21→15:03)
[2020-10-21] MEDS: METOCLOPRAMIDE HCL 10MG/2ML VIAL IV SCH ×4 (05:16→23:17)
[2020-10-21 05:51] LABS: CHLORIDE 96 mEq/L (98-107)
[2020-10-21 05:53] LABS: BASOPHILS % 0.4 % (0.0-2.0); EOSINOPHILS % 3.3 % (0.0-5.0); HEMATOCRIT. 28.5 % (36.0-48.0); HEMOGLOBIN. 9.5 g/dL (12.0-16.0); LYMPHOCYTES % 8.3 % (20.0-50.0); MEAN CORPUSCULAR HEMOGLOBIN 29.8 pg (28.0-32.0); MEAN PLATELET VOLUME 9.7 fl (7.4-10.4); PLATELET 179 x1000/uL (130-400); RED BLOOD CELL COUNT 3.17 mill/uL (4.2-5.4); RED CELL DISTRIBUTION WIDTH 14.7 % (11.6-14.6)
[2020-10-21] MEDS: DEXTROSE 5% WATER 1,000 ML IV SCH (08:09)
[2020-10-21] MEDS: PANTOPRAZOLE SODIUM 40 MG/VIAL IV SCH (08:51)
[2020-10-21] MEDS: ACETAMINOPHEN 650MG/20.3ML UDC PO PRN ×3 (08:52→23:39)
[2020-10-21 09:46] LABS: BG BASE EXCESS 3.4 mmol/L (-2.0-2.0); BG CARBOXYHEMOGLOBIN 2.3 % (0.5-1.5); BG DEOXYHEMOGLOBIN 6.7 % (0.0-5.0); BG FRACTION INSPIRED OXYGEN 100; BG HCO3 ACT 29.4 mmol/L (22.0-26.0); BG METHEMOGLOBIN 0.3 % (0.0-1.5); BG OXYGEN SATURATION 93.1 % (92.0-98.5); BG OXYHEMOGLOBIN 90.7 % (94.0-97.0); BG PCO2 52.1 mmHg (35.0-45.0); BG PO2 67.5 mmHg (75.0-100.0); BG SAMPLE SITE LEFT RADIAL; BG TOTAL HEMOGLOBIN 10.5 g/dL (12.0-18.0); BG VENT MODE VENT - AC
[2020-10-21] MEDS: PROPOFOL 10MG/ML 100ML 100 ML IV PRN ×3 (12:44→21:53)
[2020-10-21] MEDS ORDERED: PROPOFOL 10MG/ML 100ML 100 ML IV PRN (14:45)
[2020-10-22] VITALS (92 sets, daily range): BP systolic 108–154; BP diastolic 60–90
[2020-10-22] MEDS: PHENYLEPHRINE 100 MG in DEXT 5% WATER 240 ML IV PRN ×2 (00:20→18:12)
[2020-10-22] MEDS: IPRATROPIUM/ALBUTEROL 0.5-3(2.5)MG/3ML NEB HHN SCH ×6 (00:48→21:10)
[2020-10-22] MEDS ORDERED: POTASSIUM CHLORIDE INJ 40 MEQ in DEXT 5% WATER 250 ML IV SCH (01:00)
[2020-10-22] MEDS ORDERED: MAGNESIUM 2 G PREMIX 50 ML IV SCH (01:00)
[2020-10-22] MEDS: MIDAZOLAM HCL 100 MG in DEXT 5% WATER 80 ML IV PRN ×3 (01:12→19:42)
[2020-10-22] MEDS: FENTANYL CITRATE/PF 2,500 MCG in SODIUM CHLORIDE 0.9% 200 ML IV PRN ×3 (02:20→23:58)
[2020-10-22] MEDS: PROPOFOL 10MG/ML 100ML 100 ML IV PRN ×4 (03:07→22:40)
[2020-10-22] MEDS: METOCLOPRAMIDE HCL 10MG/2ML VIAL IV SCH ×4 (06:08→22:57)
[2020-10-22] MEDS: PANTOPRAZOLE SODIUM 40 MG/VIAL IV SCH (09:25)
[2020-10-22 10:28] LABS: BG BASE EXCESS 3.6 mmol/L (-2.0-2.0); BG CARBOXYHEMOGLOBIN 2.4 % (0.5-1.5); BG DEOXYHEMOGLOBIN 2.9 % (0.0-5.0); BG FRACTION INSPIRED OXYGEN 100; BG HCO3 ACT 31.5 mmol/L (22.0-26.0); BG METHEMOGLOBIN 0.3 % (0.0-1.5); BG OXYHEMOGLOBIN 94.4 % (94.0-97.0); BG PCO2 68.9 mmHg (35.0-45.0); BG PH 7.278 (7.350-7.450); BG PO2 99.9 mmHg (75.0-100.0); BG SAMPLE SITE LEFT RADIAL; BG TOTAL HEMOGLOBIN 9.2 g/dL (12.0-18.0); BG VENT MODE VENT - AC
[2020-10-22] MEDS: DEXTROSE 5% WATER 1,000 ML IV SCH (11:06)
[2020-10-22 20:38] LABS: HEMOGLOBIN. 9.8 g/dL (12.0-16.0); MEAN CORPUSCULAR HEMOGLOBIN 30.9 pg (28.0-32.0); MEAN PLATELET VOLUME 9.4 fl (7.4-10.4); PLATELET 230 x1000/uL (130-400); RED BLOOD CELL COUNT 3.18 mill/uL (4.2-5.4); RED CELL DISTRIBUTION WIDTH 15.3 % (11.6-14.6)
[2020-10-22 20:50] LABS: CHLORIDE 102 mEq/L (98-107)
[2020-10-22 21:06] LABS: PLATELET ESTIMATE NORMAL
[2020-10-22] MEDS: ACETAMINOPHEN 650MG/20.3ML UDC PO PRN (22:56)
[2020-10-23] VITALS (89 sets, daily range): BP systolic 85–155; BP diastolic 46–86
[2020-10-23] MEDS: IPRATROPIUM/ALBUTEROL 0.5-3(2.5)MG/3ML NEB HHN SCH ×6 (00:13→21:15)
[2020-10-23] MEDS: PROPOFOL 10MG/ML 100ML 100 ML IV PRN ×5 (03:04→23:23)
[2020-10-23] MEDS: METOCLOPRAMIDE HCL 10MG/2ML VIAL IV SCH ×4 (05:48→23:20)
[2020-10-23] MEDS: MIDAZOLAM HCL 100 MG in DEXT 5% WATER 80 ML IV PRN ×2 (06:30→16:07)
[2020-10-23 08:32] LABS: BG DEOXYHEMOGLOBIN 9.4 % (0.0-5.0); BG HCO3 ACT 30.8 mmol/L (22.0-26.0); BG METHEMOGLOBIN 0.3 % (0.0-1.5); BG OXYGEN SATURATION 90.4 % (92.0-98.5); BG OXYHEMOGLOBIN 88.3 % (94.0-97.0); BG PCO2 58.6 mmHg (35.0-45.0); BG PH 7.339 (7.350-7.450); BG PO2 59.4 mmHg (75.0-100.0); BG SAMPLE SITE RIGHT RADIAL; BG TOTAL HEMOGLOBIN 9.9 g/dL (12.0-18.0); BG VENT MODE VENT - AC
[2020-10-23] MEDS: FENTANYL CITRATE/PF 2,500 MCG in SODIUM CHLORIDE 0.9% 200 ML IV PRN ×2 (08:50→18:45)
[2020-10-23] MEDS: PANTOPRAZOLE SODIUM 40 MG/VIAL IV SCH (09:13)
[2020-10-23] MEDS: DEXTROSE 5% WATER 1,000 ML IV SCH (09:22)
[2020-10-23 10:09] LABS: HEMATOCRIT. 28.5 % (36.0-48.0); HEMOGLOBIN. 9.3 g/dL (12.0-16.0); MEAN CORPUSCULAR VOLUME 91.6 fL (81.0-99.0); MEAN PLATELET VOLUME 9.4 fl (7.4-10.4); PLATELET 237 x1000/uL (130-400); RED BLOOD CELL COUNT 3.11 mill/uL (4.2-5.4); RED CELL DISTRIBUTION WIDTH 15.7 % (11.6-14.6)
[2020-10-23 10:23] LABS: CHLORIDE 101 mEq/L (98-107)
[2020-10-23] MEDS: PHENYLEPHRINE 100 MG in DEXT 5% WATER 240 ML IV PRN (10:29)
[2020-10-23 12:20] LABS: NUCLEATED RED BLOOD CELLS 1 /100 WBC
[2020-10-23 12:21] LABS: PLATELET ESTIMATE NORMAL
[2020-10-23] MEDS: ACETAMINOPHEN 650MG/20.3ML UDC PO PRN (12:34)
[2020-10-24] VITALS (99 sets, daily range): BP systolic 78–154; BP diastolic 44–93
[2020-10-24] MEDS: IPRATROPIUM/ALBUTEROL 0.5-3(2.5)MG/3ML NEB HHN SCH ×5 (00:23→16:39)
[2020-10-24] MEDS: MIDAZOLAM HCL 100 MG in DEXT 5% WATER 80 ML IV PRN ×3 (01:01→21:01)
[2020-10-24] MEDS: PHENYLEPHRINE 100 MG in DEXT 5% WATER 240 ML IV PRN ×3 (01:02→20:27)
[2020-10-24] MEDS: FENTANYL CITRATE/PF 2,500 MCG in SODIUM CHLORIDE 0.9% 200 ML IV PRN ×3 (03:07→19:03)
[2020-10-24] MEDS: PROPOFOL 10MG/ML 100ML 100 ML IV PRN ×5 (03:10→22:38)
[2020-10-24] MEDS: METOCLOPRAMIDE HCL 10MG/2ML VIAL IV SCH ×4 (05:12→23:44)
[2020-10-24] MEDS: PANTOPRAZOLE SODIUM 40 MG/VIAL IV SCH (08:23)
[2020-10-24] MEDS: DEXTROSE 5% WATER 1,000 ML IV SCH (08:29)
[2020-10-24 08:58] LABS: HEMATOCRIT. 28.5 % (36.0-48.0); HEMOGLOBIN. 9.2 g/dL (12.0-16.0); MEAN CORPUSCULAR HEMOGLOBIN 29.6 pg (28.0-32.0); MEAN CORPUSCULAR VOLUME 91.7 fL (81.0-99.0); MEAN PLATELET VOLUME 9.3 fl (7.4-10.4); PLATELET 285 x1000/uL (130-400); RED BLOOD CELL COUNT 3.11 mill/uL (4.2-5.4); RED CELL DISTRIBUTION WIDTH 15.8 % (11.6-14.6)
[2020-10-24 13:52] LABS: BG BASE EXCESS -3.3 mmol/L (-2.0-2.0); BG CARBOXYHEMOGLOBIN 1.9 % (0.5-1.5); BG DEOXYHEMOGLOBIN 2.5 % (0.0-5.0); BG FRACTION INSPIRED OXYGEN 100; BG HCO3 ACT 25.7 mmol/L (22.0-26.0); BG METHEMOGLOBIN 0.1 % (0.0-1.5); BG OXYGEN SATURATION 97.4 % (92.0-98.5); BG OXYHEMOGLOBIN 95.5 % (94.0-97.0); BG PCO2 69.5 mmHg (35.0-45.0); BG PH 7.186 (7.350-7.450); BG PO2 110.1 mmHg (75.0-100.0); BG SAMPLE SITE RIGHT RADIAL; BG TOTAL HEMOGLOBIN 10.2 g/dL (12.0-18.0); BG VENT MODE VENT - AC
[2020-10-24] MEDS ORDERED: SODIUM BICARBONATE 8.4% 1 MEQ/ML 50ML SYR IV STA (14:15)
[2020-10-24 15:04] LABS: PLATELET ESTIMATE NORMAL
[2020-10-24 16:32] LABS: BG BASE EXCESS 6.1 mmol/L (-2.0-2.0); BG DEOXYHEMOGLOBIN 3.7 % (0.0-5.0); BG FRACTION INSPIRED OXYGEN 100; BG HCO3 ACT 34.3 mmol/L (22.0-26.0); BG METHEMOGLOBIN 0.3 % (0.0-1.5); BG OXYGEN SATURATION 96.2 % (92.0-98.5); BG PCO2 72.7 mmHg (35.0-45.0); BG PH 7.291 (7.350-7.450); BG PO2 83.9 mmHg (75.0-100.0); BG SAMPLE SITE LEFT RADIAL; BG TOTAL HEMOGLOBIN 9.9 g/dL (12.0-18.0); BG TOTAL RESPIRATORY RATE 34 b/min; BG VENT MODE VENT - AC
[2020-10-24 20:56] LABS: BG BASE EXCESS -4.7 mmol/L (-2.0-2.0); BG CARBOXYHEMOGLOBIN 0.2 % (0.5-1.5); BG DEOXYHEMOGLOBIN 5.1 % (0.0-5.0); BG FRACTION INSPIRED OXYGEN 3; BG METHEMOGLOBIN 0.1 % (0.0-1.5); BG OXYGEN SATURATION 94.9 % (92.0-98.5); BG OXYHEMOGLOBIN 94.6 % (94.0-97.0); BG PH 7.442 (7.350-7.450); BG PO2 66.9 mmHg (75.0-100.0); BG TOTAL HEMOGLOBIN 12.9 g/dL (12.0-18.0); BG VENT MODE NASAL CANNULA
[2020-10-24 21:05] LABS: BG SAMPLE SITE RIGHT RADIAL
[2020-10-25] VITALS (82 sets, daily range): BP systolic 78–132; BP diastolic 38–88
[2020-10-25] MEDS: IPRATROPIUM/ALBUTEROL 0.5-3(2.5)MG/3ML NEB HHN SCH ×6 (00:28→21:04)
[2020-10-25] MEDS: FENTANYL CITRATE/PF 2,500 MCG in SODIUM CHLORIDE 0.9% 200 ML IV PRN ×3 (02:12→16:45)
[2020-10-25] MEDS: PROPOFOL 10MG/ML 100ML 100 ML IV PRN ×3 (03:25→12:54)
[2020-10-25] MEDS: METOCLOPRAMIDE HCL 10MG/2ML VIAL IV SCH ×3 (05:17→17:14)
[2020-10-25] MEDS: MIDAZOLAM HCL 100 MG in DEXT 5% WATER 80 ML IV PRN ×2 (07:05→16:41)
[2020-10-25] MEDS: PHENYLEPHRINE 100 MG in DEXT 5% WATER 240 ML IV PRN ×3 (07:59→23:47)
[2020-10-25] MEDS: PANTOPRAZOLE SODIUM 40 MG/VIAL IV SCH (09:22)
[2020-10-25 09:38] LABS: BG BASE EXCESS 1.3 mmol/L (-2.0-2.0); BG CARBOXYHEMOGLOBIN 2.2 % (0.5-1.5); BG DEOXYHEMOGLOBIN 7.4 % (0.0-5.0); BG FRACTION INSPIRED OXYGEN 100; BG HCO3 ACT 26.8 mmol/L (22.0-26.0); BG METHEMOGLOBIN 0.3 % (0.0-1.5); BG OXYGEN SATURATION 92.4 % (92.0-98.5); BG OXYHEMOGLOBIN 90.1 % (94.0-97.0); BG PCO2 47.1 mmHg (35.0-45.0); BG PH 7.373 (7.350-7.450); BG PO2 64.1 mmHg (75.0-100.0); BG SAMPLE SITE LEFT RADIAL; BG VENT MODE VENT - AC
[2020-10-25] MEDS: MIDODRINE HCL 5MG TABLET PO SCH ×2 (11:42→16:30)
[2020-10-25] MEDS: DEXTROSE 5% WATER 1,000 ML IV SCH (12:34)
[2020-10-25] MEDS: ACETAMINOPHEN 650MG/20.3ML UDC PO PRN (21:00)
[2020-10-26] VITALS (97 sets, daily range): BP systolic 70–179; BP diastolic 27–104
[2020-10-26] MEDS: METOCLOPRAMIDE HCL 10MG/2ML VIAL IV SCH ×4 (00:01→17:24)
[2020-10-26] MEDS: IPRATROPIUM/ALBUTEROL 0.5-3(2.5)MG/3ML NEB HHN SCH ×6 (00:50→20:40)
[2020-10-26] MEDS: PROPOFOL 10MG/ML 100ML 100 ML IV PRN ×2 (00:53→08:06)
[2020-10-26] MEDS: FENTANYL CITRATE/PF 2,500 MCG in SODIUM CHLORIDE 0.9% 200 ML IV PRN ×3 (02:56→22:16)
[2020-10-26] MEDS: MIDAZOLAM HCL 100 MG in DEXT 5% WATER 80 ML IV PRN ×2 (02:57→17:48)
[2020-10-26 05:35] LABS: HEMATOCRIT. 28.8 % (36.0-48.0); HEMOGLOBIN. 9.4 g/dL (12.0-16.0); MEAN CORPUSCULAR HEMOGLOBIN 29.3 pg (28.0-32.0); MEAN CORPUSCULAR VOLUME 89.4 fL (81.0-99.0); MEAN PLATELET VOLUME 8.8 fl (7.4-10.4); PLATELET 334 x1000/uL (130-400); RED BLOOD CELL COUNT 3.22 mill/uL (4.2-5.4); RED CELL DISTRIBUTION WIDTH 15.6 % (11.6-14.6)
[2020-10-26] MEDS: DEXTROSE 5% WATER 1,000 ML IV SCH (06:07)
[2020-10-26] MEDS: MIDODRINE HCL 5MG TABLET PO SCH ×3 (08:57→17:24)
[2020-10-26] MEDS: ACETAMINOPHEN 650MG/20.3ML UDC PO PRN (08:57)
[2020-10-26] MEDS: PANTOPRAZOLE SODIUM 40 MG/VIAL IV SCH (08:57)
[2020-10-26 09:19] LABS: BG BASE EXCESS 1.5 mmol/L (-2.0-2.0); BG CARBOXYHEMOGLOBIN 2.2 % (0.5-1.5); BG DEOXYHEMOGLOBIN 11.7 % (0.0-5.0); BG FRACTION INSPIRED OXYGEN 100; BG HCO3 ACT 27.2 mmol/L (22.0-26.0); BG METHEMOGLOBIN 0.3 % (0.0-1.5); BG OXYHEMOGLOBIN 85.8 % (94.0-97.0); BG PCO2 48.5 mmHg (35.0-45.0); BG PH 7.367 (7.350-7.450); BG PO2 53.6 mmHg (75.0-100.0); BG SAMPLE SITE LEFT RADIAL; BG TOTAL HEMOGLOBIN 9.9 g/dL (12.0-18.0); BG TOTAL RESPIRATORY RATE 36 b/min; BG VENT MODE VENT - AC
[2020-10-26 11:13] LABS: NUCLEATED RED BLOOD CELLS 2 /100 WBC; PLATELET ESTIMATE NORMAL
[2020-10-26] MEDS ORDERED: EPINEPHRINE 10 MG in SODIUM CHLORIDE 0.9% 240 ML IV PRN (11:15)
[2020-10-26] MEDS: NOREPINEPHRINE 32 MG in DEXT 5% WATER 218 ML IV PRN ×2 (11:18→17:46)
[2020-10-26] MEDS ORDERED: VASOPRESSIN 20 UNIT in SODIUM CHLORIDE 0.9% 99 ML IV PRN (11:30)
[2020-10-26 12:31] LABS: BASOPHILS % 0.4 % (0.0-2.0); EOSINOPHILS % 0.5 % (0.0-5.0); HEMATOCRIT. 27.7 % (36.0-48.0); HEMOGLOBIN. 8.4 g/dL (12.0-16.0); MEAN CORPUSCULAR HEMOGLOBIN 29.9 pg (28.0-32.0); MEAN CORPUSCULAR VOLUME 98.6 fL (81.0-99.0); MEAN PLATELET VOLUME 9.8 fl (7.4-10.4); MONOCYTES % 0.8 % (2.0-8.0); NEUTROPHILS % 88.3 % (40.0-76.0); PLATELET 249 x1000/uL (130-400); RED BLOOD CELL COUNT 2.81 mill/uL (4.2-5.4); RED CELL DISTRIBUTION WIDTH 17.7 % (11.6-14.6)
[2020-10-26] MEDS: PHENYLEPHRINE 100 MG in DEXT 5% WATER 240 ML IV PRN ×2 (12:51→19:19)
[2020-10-26 16:34] LABS: CHLORIDE 91 mEq/L (98-107)
[2020-10-26 16:40] LABS: PHOSPHORUS 7.2 mg/dL (2.5-4.9)
[2020-10-26] MEDS ORDERED: MAGNESIUM 1 G PREMIX 100 ML IV NR (20:00)
[2020-10-27] VITALS (141 sets, daily range): BP systolic 71–199; BP diastolic 29–120
[2020-10-27] MEDS: IPRATROPIUM/ALBUTEROL 0.5-3(2.5)MG/3ML NEB HHN SCH ×6 (00:32→20:52)
[2020-10-27] MEDS: METOCLOPRAMIDE HCL 10MG/2ML VIAL IV SCH ×4 (01:23→16:46)
[2020-10-27] MEDS: PHENYLEPHRINE 100 MG in DEXT 5% WATER 240 ML IV PRN ×4 (01:59→20:52)
[2020-10-27] MEDS: MIDAZOLAM HCL 100 MG in DEXT 5% WATER 80 ML IV PRN ×2 (03:47→14:32)
[2020-10-27 06:01] LABS: CHLORIDE 85 mEq/L (98-107)
[2020-10-27 06:02] LABS: HEMATOCRIT. 26.9 % (36.0-48.0); MEAN CORPUSCULAR VOLUME 89.4 fL (81.0-99.0); MEAN PLATELET VOLUME 9.5 fl (7.4-10.4); PLATELET 261 x1000/uL (130-400); RED CELL DISTRIBUTION WIDTH 15.9 % (11.6-14.6)
[2020-10-27 06:09] LABS: PHOSPHORUS 7.3 mg/dL (2.5-4.9)
[2020-10-27] MEDS: FENTANYL CITRATE/PF 2,500 MCG in SODIUM CHLORIDE 0.9% 200 ML IV PRN ×2 (07:03→16:07)
[2020-10-27] MEDS: DEXTROSE 5% WATER 1,000 ML IV SCH (07:53)
[2020-10-27 08:10] LABS: BG BASE EXCESS -4.1 mmol/L (-2.0-2.0); BG CARBOXYHEMOGLOBIN 2.4 % (0.5-1.5); BG DEOXYHEMOGLOBIN 16.5 % (0.0-5.0); BG HCO3 ACT 23.9 mmol/L (22.0-26.0); BG METHEMOGLOBIN 0.3 % (0.0-1.5); BG OXYHEMOGLOBIN 80.8 % (94.0-97.0); BG PCO2 59.7 mmHg (35.0-45.0); BG PH 7.221 (7.350-7.450); BG PO2 50.3 mmHg (75.0-100.0); BG SAMPLE SITE RIGHT RADIAL; BG VENT MODE VENT - AC
[2020-10-27] MEDS: MIDODRINE HCL 5MG TABLET PO SCH ×3 (08:58→16:46)
[2020-10-27] MEDS: PANTOPRAZOLE SODIUM 40 MG/VIAL IV SCH (08:58)
[2020-10-27 10:58] LABS: HEMATOCRIT 27.1 % (36.0-48.0); MEAN CORPUSCULAR HEMOGLOBIN 29.6 pg (28.0-32.0); MEAN CORPUSCULAR VOLUME 88.8 fL (81.0-99.0); PLATELET 249 x1000/uL (130-400); RED BLOOD CELL COUNT 3.05 mill/uL (4.2-5.4); RED CELL DISTRIBUTION WIDTH 15.6 % (11.6-14.6)
[2020-10-27 11:10] LABS: CHLORIDE 84 mEq/L (98-107)
[2020-10-27 11:16] LABS: PHOSPHORUS 6.6 mg/dL (2.5-4.9)
[2020-10-27] MEDS ORDERED: SODIUM CHLORIDE 0.45% 1,000 ML IV SCH (13:30)
[2020-10-27 18:01] LABS: NUCLEATED RED BLOOD CELLS 4 /100 WBC; PLATELET ESTIMATE NORMAL
[2020-10-27] MEDS: NOREPINEPHRINE 32 MG in DEXT 5% WATER 218 ML IV PRN (18:33)
[2020-10-27 19:31] LABS: CHLORIDE 83 mEq/L (98-107)
[2020-10-27 19:37] LABS: PHOSPHORUS 6.2 mg/dL (2.5-4.9)
[2020-10-27] MEDS ORDERED: DEXT 5%/0.9% NACL 1,000 ML IV SCH (20:00)
[2020-10-28] VITALS (108 sets, daily range): BP systolic 64–213; BP diastolic 19–99
[2020-10-28] MEDS: MIDAZOLAM HCL 100 MG in DEXT 5% WATER 80 ML IV PRN ×3 (00:30→23:24)
[2020-10-28] MEDS: FENTANYL CITRATE/PF 2,500 MCG in SODIUM CHLORIDE 0.9% 200 ML IV PRN ×3 (00:31→19:18)
[2020-10-28] MEDS: IPRATROPIUM/ALBUTEROL 0.5-3(2.5)MG/3ML NEB HHN SCH ×6 (00:35→20:40)
[2020-10-28] MEDS: METOCLOPRAMIDE HCL 10MG/2ML VIAL IV SCH ×5 (01:20→23:23)
[2020-10-28] MEDS: PHENYLEPHRINE 100 MG in DEXT 5% WATER 240 ML IV PRN ×3 (03:33→21:47)
[2020-10-28 06:00] LABS: CHLORIDE 85 mEq/L (98-107)
[2020-10-28] MEDS ORDERED: DEXT 10%/0.9% NACL 1,000 ML IV SCH (06:30)
[2020-10-28] MEDS: SODIUM CHLORIDE 23.4% 154 MEQ in DEXT 10% WATER 1,000 ML IV SCH (07:00)
[2020-10-28] MEDS: AMIODARONE HCL 900 MG in DEXT 5% WATER 482 ML IV PRN (07:38)
[2020-10-28] MEDS ORDERED: AMIODARONE HCL 150 MG in DEXT 5% WATER 100 ML IV NR (08:00)
[2020-10-28] MEDS ORDERED: MAGNESIUM 2 G PREMIX 50 ML IV SCH (09:00)
[2020-10-28] MEDS: PANTOPRAZOLE SODIUM 40 MG/VIAL IV SCH (09:07)
[2020-10-28] MEDS: MIDODRINE HCL 5MG TABLET PO SCH ×3 (09:08→17:34)
[2020-10-28 13:25] LABS: HEMATOCRIT. 27.4 % (36.0-48.0); MEAN CORPUSCULAR HEMOGLOBIN 29.3 pg (28.0-32.0); MEAN CORPUSCULAR VOLUME 89.1 fL (81.0-99.0); MEAN PLATELET VOLUME 10.3 fl (7.4-10.4); PLATELET 254 x1000/uL (130-400); RED BLOOD CELL COUNT 3.07 mill/uL (4.2-5.4)
[2020-10-28 14:05] LABS: NUCLEATED RED BLOOD CELLS 12 /100 WBC; PLATELET ESTIMATE NORMAL
[2020-10-28 14:08] LABS: CHLORIDE 84 mEq/L (98-107)
[2020-10-28 14:36] LABS: HEPATITIS B SURFACE ANTIGEN NEGATIVE
[2020-10-28 15:05] LABS: HEPATITIS A AB IGM NEGATIVE (NEGATIVE)
[2020-10-28] MEDS: NOREPINEPHRINE 32 MG in DEXT 5% WATER 218 ML IV PRN (23:33)
[2020-10-29] VITALS (92 sets, daily range): BP systolic 71–186; BP diastolic 32–108
[2020-10-29] MEDS: IPRATROPIUM/ALBUTEROL 0.5-3(2.5)MG/3ML NEB HHN SCH ×6 (00:46→21:03)
[2020-10-29] MEDS: PHENYLEPHRINE 100 MG in DEXT 5% WATER 240 ML IV PRN ×4 (04:04→23:22)
[2020-10-29] MEDS: FENTANYL CITRATE/PF 2,500 MCG in SODIUM CHLORIDE 0.9% 200 ML IV PRN ×3 (04:35→22:10)
[2020-10-29] MEDS: METOCLOPRAMIDE HCL 10MG/2ML VIAL IV SCH ×4 (05:30→23:26)
[2020-10-29] MEDS: MIDAZOLAM HCL 100 MG in DEXT 5% WATER 80 ML IV PRN ×2 (08:22→17:34)
[2020-10-29] MEDS: SODIUM CHLORIDE 23.4% 154 MEQ in DEXT 10% WATER 1,000 ML IV SCH ×2 (08:30→09:16)
[2020-10-29] MEDS: PANTOPRAZOLE SODIUM 40 MG/VIAL IV SCH (09:07)
[2020-10-29] MEDS: MIDODRINE HCL 5MG TABLET PO SCH ×3 (09:10→17:14)
[2020-10-29] MEDS: AMIODARONE HCL 900 MG in DEXT 5% WATER 482 ML IV PRN (09:16)
[2020-10-29 15:09] LABS: BG BASE EXCESS -6.9 mmol/L (-2.0-2.0); BG CARBOXYHEMOGLOBIN 2.2 % (0.5-1.5); BG DEOXYHEMOGLOBIN 21.9 % (0.0-5.0); BG HCO3 ACT 21.7 mmol/L (22.0-26.0); BG METHEMOGLOBIN 0.3 % (0.0-1.5); BG OXYGEN SATURATION 77.5 % (92.0-98.5); BG OXYHEMOGLOBIN 75.6 % (94.0-97.0); BG PCO2 59.4 mmHg (35.0-45.0); BG PH 7.181 (7.350-7.450); BG PO2 46.7 mmHg (75.0-100.0); BG SAMPLE SITE RIGHT RADIAL; BG TOTAL HEMOGLOBIN 10.4 g/dL (12.0-18.0); BG VENT MODE VENT - AC
[2020-10-29 16:00] LABS: HEMATOCRIT 28.6 % (36.0-48.0); HEMOGLOBIN 9.3 g/dL (12.0-16.0); MEAN CORPUSCULAR HEMOGLOBIN 29.3 pg (28.0-32.0); MEAN CORPUSCULAR VOLUME 89.7 fL (81.0-99.0); PLATELET 160 x1000/uL (130-400); RED BLOOD CELL COUNT 3.19 mill/uL (4.2-5.4); RED CELL DISTRIBUTION WIDTH 16.6 % (11.6-14.6)
[2020-10-29] MEDS ORDERED: SODIUM BICARBONATE 8.4% 1 MEQ/ML 50ML SYR IV NR (16:00)
[2020-10-29] MEDS: NOREPINEPHRINE 32 MG in DEXT 5% WATER 218 ML IV PRN (21:41)
[2020-10-29] MEDS: CEFEPIME 1,000 MG in DEXTROSE 5% WATER 50 ML IV SCH (23:19)
[2020-10-30] VITALS (97 sets, daily range): BP systolic 91–183; BP diastolic 39–95
[2020-10-30] MEDS: IPRATROPIUM/ALBUTEROL 0.5-3(2.5)MG/3ML NEB HHN SCH ×6 (00:48→20:35)
[2020-10-30] MEDS: MIDAZOLAM HCL 100 MG in DEXT 5% WATER 80 ML IV PRN ×3 (03:54→23:15)
[2020-10-30 05:55] LABS: HEMATOCRIT. 27.3 % (36.0-48.0); HEMOGLOBIN. 8.9 g/dL (12.0-16.0); MEAN CORPUSCULAR HEMOGLOBIN 28.8 pg (28.0-32.0); MEAN CORPUSCULAR VOLUME 88.6 fL (81.0-99.0); MEAN PLATELET VOLUME 10.3 fl (7.4-10.4); PLATELET 160 x1000/uL (130-400); RED BLOOD CELL COUNT 3.08 mill/uL (4.2-5.4); RED CELL DISTRIBUTION WIDTH 16.6 % (11.6-14.6)
[2020-10-30] MEDS: PHENYLEPHRINE 100 MG in DEXT 5% WATER 240 ML IV PRN ×3 (06:50→23:10)
[2020-10-30] MEDS: METOCLOPRAMIDE HCL 10MG/2ML VIAL IV SCH ×4 (06:50→23:15)
[2020-10-30] MEDS: FENTANYL CITRATE/PF 2,500 MCG in SODIUM CHLORIDE 0.9% 200 ML IV PRN ×2 (07:07→15:18)
[2020-10-30] MEDS: SODIUM CHLORIDE 23.4% 154 MEQ in DEXT 10% WATER 1,000 ML IV SCH (07:58)
[2020-10-30] MEDS: PANTOPRAZOLE SODIUM 40 MG/VIAL IV SCH (08:54)
[2020-10-30] MEDS: MIDODRINE HCL 5MG TABLET PO SCH ×3 (08:55→17:18)
[2020-10-30 09:33] LABS: BG BASE EXCESS -6.8 mmol/L (-2.0-2.0); BG CARBOXYHEMOGLOBIN 3.2 % (0.5-1.5); BG DEOXYHEMOGLOBIN 46.1 % (0.0-5.0); BG FRACTION INSPIRED OXYGEN 100; BG HCO3 ACT 21.2 mmol/L (22.0-26.0); BG METHEMOGLOBIN 0.3 % (0.0-1.5); BG OXYGEN SATURATION 52.2 % (92.0-98.5); BG OXYHEMOGLOBIN 50.4 % (94.0-97.0); BG PCO2 54.7 mmHg (35.0-45.0); BG PH 7.206 (7.350-7.450); BG PO2 30.8 mmHg (75.0-100.0); BG SAMPLE SITE LEFT RADIAL; BG TOTAL HEMOGLOBIN 10.1 g/dL (12.0-18.0); BG VENT MODE VENT - AC
[2020-10-30] MEDS ORDERED: KCL 20MEQ/100ML PREMIX 100 ML IV NR (11:00)
[2020-10-30] MEDS ORDERED: SODIUM BICARBONATE 8.4% 1 MEQ/ML 50ML SYR IV ONE (14:15)
[2020-10-30 14:29] LABS: NUCLEATED RED BLOOD CELLS 29 /100 WBC; PLATELET ESTIMATE NORMAL
[2020-10-30] MEDS ORDERED: SODIUM BICARBONATE 8.4% 1 MEQ/ML 50ML SYR IV NR (15:15)
[2020-10-30] MEDS: NOREPINEPHRINE 32 MG in DEXT 5% WATER 218 ML IV PRN (19:46)
[2020-10-30] MEDS: CEFEPIME 1,000 MG in DEXTROSE 5% WATER 50 ML IV SCH (21:24)
[2020-10-31] VITALS (108 sets, daily range): BP systolic 71–149; BP diastolic 38–76
[2020-10-31] MEDS: IPRATROPIUM/ALBUTEROL 0.5-3(2.5)MG/3ML NEB HHN SCH ×6 (00:21→21:04)
[2020-10-31] MEDS: FENTANYL CITRATE/PF 2,500 MCG in SODIUM CHLORIDE 0.9% 200 ML IV PRN ×3 (00:37→19:02)
[2020-10-31 05:55] LABS: HEMATOCRIT. 24.7 % (36.0-48.0); HEMOGLOBIN. 8.1 g/dL (12.0-16.0); MEAN CORPUSCULAR VOLUME 88.6 fL (81.0-99.0); MEAN PLATELET VOLUME 9.8 fl (7.4-10.4); PLATELET 126 x1000/uL (130-400); RED BLOOD CELL COUNT 2.79 mill/uL (4.2-5.4); RED CELL DISTRIBUTION WIDTH 16.8 % (11.6-14.6)
[2020-10-31] MEDS: SODIUM CHLORIDE 23.4% 154 MEQ in DEXT 10% WATER 1,000 ML IV SCH ×2 (06:47→23:18)
[2020-10-31] MEDS: METOCLOPRAMIDE HCL 10MG/2ML VIAL IV SCH ×3 (06:48→17:00)
[2020-10-31] MEDS: PANTOPRAZOLE SODIUM 40 MG/VIAL IV SCH (08:48)
[2020-10-31] MEDS: MIDODRINE HCL 5MG TABLET PO SCH ×3 (08:48→17:00)
[2020-10-31] MEDS: MIDAZOLAM HCL 100 MG in DEXT 5% WATER 80 ML IV PRN ×2 (08:49→18:56)
[2020-10-31] MEDS: PHENYLEPHRINE 100 MG in DEXT 5% WATER 240 ML IV PRN (18:02)
[2020-10-31] MEDS: NOREPINEPHRINE 32 MG in DEXT 5% WATER 218 ML IV PRN (18:57)
[2020-10-31 21:58] LABS: NUCLEATED RED BLOOD CELLS 42 /100 WBC
[2020-10-31 21:59] LABS: PLATELET ESTIMATE DECREASED
[2020-10-31] MEDS: CEFEPIME 1,000 MG in DEXTROSE 5% WATER 50 ML IV SCH (22:37)
[2020-11-01] VITALS (105 sets, daily range): BP systolic 79–128; BP diastolic 26–65
[2020-11-01] MEDS: METOCLOPRAMIDE HCL 10MG/2ML VIAL IV SCH ×4 (00:44→18:24)
[2020-11-01] MEDS: IPRATROPIUM/ALBUTEROL 0.5-3(2.5)MG/3ML NEB HHN SCH ×6 (01:47→20:34)
[2020-11-01] MEDS: FENTANYL CITRATE/PF 2,500 MCG in SODIUM CHLORIDE 0.9% 200 ML IV PRN ×2 (05:03→15:30)
[2020-11-01] MEDS: PHENYLEPHRINE 100 MG in DEXT 5% WATER 240 ML IV PRN ×3 (06:23→20:25)
[2020-11-01] MEDS: MIDAZOLAM HCL 100 MG in DEXT 5% WATER 80 ML IV PRN ×2 (06:32→15:31)
[2020-11-01] MEDS: PANTOPRAZOLE SODIUM 40 MG/VIAL IV SCH (08:46)
[2020-11-01] MEDS: MIDODRINE HCL 5MG TABLET PO SCH ×3 (08:47→18:24)
[2020-11-01] MEDS: SODIUM CHLORIDE 23.4% 154 MEQ in DEXT 10% WATER 1,000 ML IV SCH (16:48)
[2020-11-01] MEDS: CEFEPIME 1,000 MG in DEXTROSE 5% WATER 50 ML IV SCH (22:50)
[2020-11-02] VITALS (112 sets, daily range): BP systolic 60–130; BP diastolic 14–73
[2020-11-02] MEDS: IPRATROPIUM/ALBUTEROL 0.5-3(2.5)MG/3ML NEB HHN SCH ×6 (00:45→20:41)
[2020-11-02] MEDS: METOCLOPRAMIDE HCL 10MG/2ML VIAL IV SCH ×4 (01:19→17:34)
[2020-11-02] MEDS: FENTANYL CITRATE/PF 2,500 MCG in SODIUM CHLORIDE 0.9% 200 ML IV PRN ×3 (01:28→15:06)
[2020-11-02] MEDS: MIDAZOLAM HCL 100 MG in DEXT 5% WATER 80 ML IV PRN ×2 (06:33→09:06)
[2020-11-02] MEDS: PHENYLEPHRINE 100 MG in DEXT 5% WATER 240 ML IV PRN ×4 (06:34→21:27)
[2020-11-02] MEDS: MIDODRINE HCL 5MG TABLET PO SCH ×3 (08:51→17:35)
[2020-11-02] MEDS: PANTOPRAZOLE SODIUM 40 MG/VIAL IV SCH (08:51)
[2020-11-02] MEDS: SODIUM CHLORIDE 23.4% 154 MEQ in DEXT 10% WATER 1,000 ML IV SCH (12:04)
[2020-11-02] MEDS: NOREPINEPHRINE 32 MG in DEXT 5% WATER 218 ML IV PRN ×2 (13:48→23:19)
[2020-11-02] MEDS ORDERED: MIDAZOLAM HCL 100 MG in SODIUM CHLORIDE 0.9% 80 ML IV PRN (19:30)
[2020-11-02] MEDS: CEFEPIME 1,000 MG in DEXTROSE 5% WATER 50 ML IV SCH (22:07)
[2020-11-02] MEDS ORDERED: EPINEPHRINE 10 MG in DEXT 5% WATER 240 ML IV PRN (22:45)
[2020-11-03] VITALS (34 sets, daily range): BP systolic 60–122; BP diastolic 18–51
[2020-11-03] MEDS: IPRATROPIUM/ALBUTEROL 0.5-3(2.5)MG/3ML NEB HHN SCH ×3 (00:31→09:27)
[2020-11-03] MEDS: METOCLOPRAMIDE HCL 10MG/2ML VIAL IV SCH ×2 (01:01→06:00)
[2020-11-03] MEDS ORDERED: CEFTRIAXONE 2 G PREMIX 50 ML IV SCH (01:30)
[2020-11-03] MEDS: FENTANYL CITRATE/PF 2,500 MCG in SODIUM CHLORIDE 0.9% 200 ML IV PRN (02:14)
[2020-11-03] MEDS: PHENYLEPHRINE 100 MG in DEXT 5% WATER 240 ML IV PRN (03:13)
[2020-11-03] MEDS ORDERED: CEFTRIAXONE 2,000 MG in DEXTROSE 5% WATER 50 ML IV SCH (05:00)
[2020-11-03] MEDS: NOREPINEPHRINE 32 MG in DEXT 5% WATER 218 ML IV PRN (05:53)
[2020-11-03] MEDS: SODIUM CHLORIDE 23.4% 154 MEQ in DEXT 10% WATER 1,000 ML IV SCH (07:08)
[2020-11-03] MEDS ORDERED: PHENYLEPHRINE 100 MG in DEXT 5% WATER 240 ML IV PRN (08:45)
== END 2020-11-03 10:54 | disposition expired | DRG 720 ==
LOC: ER 18:51 → 7EST 23:51 → ENRESERV 09-27 03:38 → MICUNO 10-03 15:54 → 7WST 10-05 20:15 → MICUNO 10-07 19:30
PROVIDERS: ADMIT Family Medicine; ATTEND Family Medicine
PROC: XW13325 Transfusion of Convalescent Plasma (Nonautologous) into Peripheral Vein, Percutaneous Approach, New Technology Group 5 (ICD-10-PCS; 2020-09-29)
PROC: 30233M1 Transfusion of Nonautologous Plasma Cryoprecipitate into Peripheral Vein, Percutaneous Approach (ICD-10-PCS; 2020-09-29)
PROC: 5A09457 Assistance with Respiratory Ventilation, 24-96 Consecutive Hours, Continuous Positive Airway Pressure (ICD-10-PCS; 2020-10-03)
PROC: 5A1955Z Respiratory Ventilation, Greater than 96 Consecutive Hours (ICD-10-PCS; principal; 2020-10-06)
PROC: 0BH17EZ Insertion of Endotracheal Airway into Trachea, Via Natural or Artificial Opening (ICD-10-PCS; 2020-10-06)
PROC: 05HY33Z Insertion of Infusion Device into Upper Vein, Percutaneous Approach (ICD-10-PCS; 2020-10-06)
PROC: B54MZZA Ultrasonography of Right Upper Extremity Veins, Guidance (ICD-10-PCS; 2020-10-06)
PROC: 5A12012 Performance of Cardiac Output, Single, Manual (ICD-10-PCS; 2020-10-26)
DX: A41.89 Other specified sepsis (principal); U07.1 COVID-19; J12.89 Other viral pneumonia; I25.10 Atherosclerotic heart disease of native coronary artery without angina pectoris; I10 Essential (primary) hypertension; E78.5 Hyperlipidemia, unspecified; E87.1 Hypo-osmolality and hyponatremia; R74.01 Elevation of levels of liver transaminase levels; E66.01 Morbid (severe) obesity due to excess calories; D64.9 Anemia, unspecified; N17.9 Acute kidney failure, unspecified; I46.2 Cardiac arrest due to underlying cardiac condition; Z51.5 Encounter for palliative care; Z66 Do not resuscitate; E87.2 Acidosis; J98.2 Interstitial emphysema; I48.0 Paroxysmal atrial fibrillation; R04.0 Epistaxis; K59.00 Constipation, unspecified; R31.9 Hematuria, unspecified; R65.21 Severe sepsis with septic shock; D68.59 Other primary thrombophilia; E87.5 Hyperkalemia; Z95.5 Presence of coronary angioplasty implant and graft; Z68.32 Body mass index [BMI] 32.0-32.9, adult; J96.01 Acute respiratory failure with hypoxia
CPT/HCPCS: 36415; 36600; 71045; 74018; 76770; 76937; 80048; 80053; 80061; 80076; 80305; 80307; 80329; 81003; 82248; 82375; 82550; 82553; 82570; 82728; 82805; 82962; 83036; 83605; 83615; 83735; 83880; 83935; 84100; 84145; 84156; 84300; 84439; 84443; 84478; 84484; 85025; 85027; 85379; 85384; 86140; 86141; 86705; 86709; 86803; 86850; 86900; 86927; 87070; 87077; 87186; 87340; 87426; 87635; 87804; 93005; 93970; 94003; 94640; 96365; 99285; A6261; C1725; C1893; C9113; J0282; J0360; J0456; J0461; J0692; J0696; J1100; J1160; J1200; J1265; J1650; J1940; J2060; J2250; J2270; J2370; J2704; J2765; J3010; J3475; J3480; J3490; J7040; J7042; J7050; J7060; J7070; J7131; P9017; Q9957; A4315